=== PATIENT | male | born 1950 | race Caucasian/White ===

== ENCOUNTER 2023-05-08 10:15 | Inpatient (IN) | payer MEDICARE ==
[2023-05-08] MEDS ORDERED: ASPIRIN 81 MG PO STA (10:57)
[2023-05-08] MEDS: METOPROLOL TARTRATE 5 MG/5 ML VIAL IVP SCH ×2 (11:54→12:12)
[2023-05-08 11:59] LABS: Basophils % (A) 1 %; Eosinophils # (A) 0.1 k/uL (0-0.7); Eosinophils % (A) 1 %; HCT 40.7 % (39.0-53.0); HGB 13.7 gm/dL (13.0-17.5); Lymphocytes % (A) 14 %; MCH 29.2 pg (25.0-35.0); MCHC 33.5 g/dL (31.0-37.0); MCV 87.2 fL (80.0-100.0); Mean Platelet Volume 7.8; Monocytes # (A) 0.4 k/uL (0-1.0); Monocytes % (A) 6 %; Neutrophils # (A) 5.4 k/uL (1.3-7.7); Neutrophils % (A) 77 %; Platelet Count 164 k/uL (150-450); RBC 4.67 m/uL (4.30-5.90); RDW 14.4 % (11.5-15.5)
[2023-05-08 12:19] LABS: INR 1.1 (<1.2); Partial Thromboplastin Time 23.9 sec (22.0-30.0); Prothrombin Time 11.7 sec (10.0-12.5)
[2023-05-08 12:26] LABS: ALT 31 U/L (4-49); AST 24 U/L (17-59); African American GFR (CKD) >90 (>60 ml/min/1.73 sqM); Albumin 3.6 g/dL (3.5-5.0); Alkaline Phosphatase 54 U/L (38-126); Anion Gap 10 mmol/L; Blood Urea Nitrogen 15 mg/dL (9-20); Calcium 8.5 mg/dL (8.4-10.2); Carbon Dioxide 27 mmol/L (22-30); Chloride 105 mmol/L (98-107); Glucose 104 mg/dL (74-99); Magnesium 2.1 mg/dL (1.6-2.3); Non-African American GFR(CKD) 83 (>60 ml/min/1.73 sqM); Potassium 3.9 mmol/L (3.5-5.1); Sodium 142 mmol/L (137-145); Total Bilirubin 1.4 mg/dL (0.2-1.3); Total Protein 6.4 g/dL (6.3-8.2)
[2023-05-08 12:32] LABS: NT-Pro-B-Type Natriuretic Pept 7410 pg/mL
[2023-05-08] MEDS ORDERED: METOPROLOL TARTRATE 25 MG TAB PO STA ×2 (12:32→14:20)
--- NOTE | 2023-05-08 12:36 | XR ---
EXAMINATION TYPE: XR chest 2V DATE OF EXAM: 05/08/2023 12:27 PM CLINICAL INDICATION:Male, 72 years old with history of difficulty breathing; [facility] COMPARISON: None TECHNIQUE: XR chest 2V. Frontal PA and lateral views of the chest. FINDINGS: EKG leads overlie the chest. No indwelling lines are seen. The heart is enlarged with central vascular congestion, ill-defined perihilar vascular markings and d iffusely increased interstitial opacities. Some alveolar opacities are suggested in the mid to lower lung zones. There are small to moderate pleural effusions. No evidence of pneumothorax. No clear evidence of an acute osseous abnormality. Mild degenerative changes of the shoulders and spi ne. IMPRESSION: Cardiomegaly with vascular congestion, edema, small to moderate pleural effusions. Findings likely re lated to moderate CHF.
[2023-05-08] MEDS ORDERED: FUROSEMIDE 10 MG/ML 4 ML VIAL IV STA (12:42)
--- NOTE | 2023-05-08 12:57 | ED ---
General Adult HPI - General Chief complaint: Shortness of Breath Stated complaint: CHF-SOB Time Seen by Provider: 05/08/23 10:37 Source: patient, RN notes reviewed, old records reviewed Mode of arrival: ambulatory Limitations: no limitations - History of Present Illness Initial comments: Patient is a 72-year-old male who presents with his Department complaining of dyspnea. Patient and has noticed worsening shortness breath over the last 3 days. States he does have a possible history of CHF as well as an irregular heart rate. Presents for further evaluation at this time. Does endorse mild lower extremity edema. Endorses worsening orthopnea and exertional dyspnea. Denies cough, fevers, congestion. Denies chest pain, abdominal pain, nausea, vomiting. Presents for further evaluation of this time. Is not on blood thinners. - Related Data Allergies Allergy/AdvReac Type Severity Reaction Status Date / Time No Known Allergies Allergy Verified 05/08/23 10:36 Review of Systems ROS Statement: Those systems with pertinent positive or pertinent negative responses have been documented in the HPI. Review of Systems: CONST: Denies fever EYES: Denies blurry vision ENT: Denies nasal congestion C/V: Denies Chest pain RESP: Endorses exertional dyspnea GI: Denies abdominal pain : Denies dysuria SKIN: Denies rash. MSK: Denies joint pain. NEURO: Denies headache ROS Other: All systems not noted in ROS Statement are negative. Past Medical History Past Medical History: Heart Failure, Hyperlipidemia, Hypertension, Prostate Disorder History of Any Multi-Drug Resistant Organisms: None Reported Past Surgical History: Ear Surgery Additional Past Surgical History / Comment(s): hearing aids Past Psychological History: No Psychological Hx Reported Smoking Status: Former smoker Past Alcohol Use History: Rare Past Drug Use History: None Reported General Exam - General Exam Comments Initial Comments: General: Appears in no acute distress. HEAD: Normal with no signs of head trauma. EYES: PERRLA, EOMI, conjunctiva normal, no discharge. ENT: Hearing grossly intact, normal oropharynx. RESPIRATORY: Clear breath sounds bilaterally. No wheezes, rales, or rhonchi. No hypoxia. Relatively clear breath sounds bilaterally. C/V: Irregular rate and rhythm. S1 and S2 auscultated, bilateral lower extremity edema, peripheral pulses 2+ and intact throughout ABD: Abd is soft, nontender, nondistended EXT: Normal range of motion, no obvious deformity SKIN: No rashes or lesions observed on exposed skin. NEURO: Alert and oriented x 4. Limitations: no limitations Course Vital Signs 05/08/23 05/08/23 05/08/23 10:31 11:37 12:14 Temperature 98.4 F Pulse Rate 113 H 121 H 117 H Respiratory 24 20 20 Rate Blood Pressure 143/79 153/95 147/103 O2 Sat by Pulse 94 L 94 L 95 Oximetry 05/08/23 05/08/23 05/08/23 12:53 14:15 15:35 Temperature Pulse Rate 108 H 108 H 118 H Respiratory 20 18 20 Rate Blood Pressure 148/108 146/94 149/97 O2 Sat by Pulse 95 93 L 93 L Oximetry Procedures - Vance Protocol (Time Out) Nurse: Selena Zavala Medical Decision Making - Medical Decision Making Was pt. sent in by a medical professional or institution ([facility], [employer], urgent care, hospital, or intermediate...) When possible be specific @ -No Did you speak to anyone other than the patient for history (EMS, parent, family, police, friend...)? What history was obtained from this source @ -No Did you review nursing and triage notes (agree or disagree)? Why? @ -I reviewed and agree with nursing and triage notes Were old charts reviewed (outside hosp., previous admission, EMS record, old EKG, old radiological studies, urgent care reports/EKG's, intermediate records)? Report findings @ -No old charts were reviewed Differential Diagnosis (chest pain, altered mental status, abdominal pain women, abdominal pain men, vaginal bleeding, weakness, fever, dyspnea, syncope, headache, dizziness, GI bleed, back pain, seizure, CVA, palpatations, mental health, musculoskeletal)? @ -Differential Dyspnea: Coronary syndrome, arrhythmia, tamponade, asthma, COPD, pulmonary embolism, pneumonia, pneumothorax, pulmonary effusion, anaphylaxis, diabetic ketoacidosis, flailed chest, pulmonary contusion, diaphragmatic rupture, anemia, neuromuscular, this is not meant to be an all-inclusive list. EKG interpreted by me (3pts min.). @ -As above X-rays interpreted by me (1pt min.). @ -Chest x-ray shows bilateral pulmonary vascular congestion. CT interpreted by me (1pt min.). @ -CT PE negative for any obvious pulmonary embolism. U/S interpreted by me (1pt. min.). @ -None done What testing was considered but not performed or refused? (CT, X-rays, U/S, labs)? Why? @ -None What meds were considered but not given or refused? Why? @ -None Did you discuss the management of the patient with other professionals (professionals i.e. Dr., PA, [employer], lab, RT, psych nurse, social work specialist, hebrew professor, teacher, ethics officer, case hardener)? Give summary @ -[facility]. Was smoking cessation discussed for >3mins.? @ -No Was critical care preformed (if so, how long)? @ -Yes, 36 minutes. Were there social determinants of health that impacted care today? How? (Homelessness, low income, unemployed, alcoholism, drug addiction, transportation, low edu. Level, literacy, decrease access to med. care, halfway, rehab)? @ -No Was there de-escalation of care discussed even if they declined (Discuss DNR or withdrawal of care, Hospice)? DNR status @ -No What co-morbidities impacted this encounter? (DM, HTN, Smoking, COPD, CAD, Cancer, CVA, ARF, Chemo, Hep., AIDS, mental health diagnosis, sleep apnea, morbid obesity)? @ -None Was patient admitted / discharged? Hospital course, mention meds given and route, prescriptions, significant lab abnormalities, going to OR and other pertinent info. @ -Based on the patient's presentation and physical exam, presents with exe rtional dyspnea and suspected CHF. Also appears to have new onset atrial fibrillation. Patient's heart rate is ranging anywhere from 115-140 on average at this time. Patient is on carvedilol at home. We will obtain prior pulmonary workup. We'll attempt to control his new-onset A. fib with metoprolol initially. Patient was in agreement this plan. Vital signs otherwise within acceptable limits. He was given 324 mg of aspirin. EKG shows A. fib with no signs of acute ischemia. Patient's laboratory studies remarkable for a d-dimer that is slightly elevated at 0.8. BNP is 7400. Troponin is undetectable. At this time, I did recommend we obtain a CT PE to rule out PE and the patient is the cause of his new-onset atrial fibrillation. He was in agreement this plan. Patient's heart rate did improve after IV metoprolol and he was loaded with oral [address] PE negative for any obvious pulmonary embolism. I discussed results of the patient. He will be admitted at this time. He was in agreement this plan. I spoke with the accepting physician, Dr. Marlow who admitted the patient. Cardiology also consulted. Patient started on Lasix twice a day, as well as a low intensity heparin drip, and BID metoprolol. Undiagnosed new problem with uncertain prognosis? @ -No Drug Therapy requiring intensive monitoring for toxicity (Heparin, Nitro, Insulin, Cardizem)? @ -Heparin Were any procedures done? @ -No Diagnosis/symptom? @ -New-onset atrial fibrillation with RVR, CHF Acute, or Chronic, or Acute on Chronic? @ -Acute Uncomplicated (without systemic symptoms) or Complicated (systemic symptoms)? @ -Complicated Side effects of treatment? @ -No Exacerbation, Progression, or Severe Exacerbation? @ -No Poses a threat to life or bodily function? How? (Chest pain, [place], [place], pneumonia, PE, COPD, DKA, ARF, appy, cholecystitis, CVA, Diverticulitis, Homicidal, Suicidal, threat to staff... and all critical care pts) @ -yes - Lab Data Result diagrams: 05/08/23 11:31 05/08/23 11:31 Lab Results 05/08/23 05/08/23 05/08/23 Range/Units 11:31 11:31 11:31 WBC 7.0 (3.8-10.6) k/uL RBC 4.67 (4.30-5.90) m/uL Hgb 13.7 (13.0-17.5) gm/dL Hct 40.7 (39.0-53.0) % MCV 87.2 (80.0-100.0) fL MCH 29.2 (25.0-35.0) pg MCHC 33.5 (31.0-37.0) g/dL RDW 14.4 (11.5-15.5) % Plt Count 164 (150-450) k/uL MPV 7.8 Neutrophils % 77 % Lymphocytes % 14 % Monocytes % 6 % Eosinophils % 1 % Basophils % 1 % Neutrophils # 5.4 (1.3-7.7) k/uL Lymphocytes # 1.0 (1.0-4.8) k/uL Monocytes # 0.4 (0-1.0) k/uL Eosinophils # 0.1 (0-0.7) k/uL Basophils # 0.0 (0-0.2) k/uL PT 11.7 (10.0-12.5) sec INR 1.1 (<1.2) APTT 23.9 (22.0-30.0) sec D-Dimer 0.80 H (<0.60) mg/L FEU Sodium 142 (137-145) mmol/L Potassium 3.9 (3.5-5.1) mmol/L Chloride 105 (98-107) mmol/L Carbon Dioxide 27 (22-30) mmol/L Anion Gap 10 mmol/L BUN 15 (9-20) mg/dL Creatinine 0.91 (0.66-1.25) mg/dL Est GFR (CKD-EPI)AfAm >90 (>60 ml/min/1.73 sqM) Est GFR (CKD-EPI)NonAf 83 (>60 ml/min/1.73 sqM) Glucose 104 H (74-99) mg/dL Calcium 8.5 (8.4-10.2) mg/dL Magnesium 2.1 (1.6-2.3) mg/dL Total Bilirubin 1.4 H (0.2-1.3) mg/dL AST 24 (17-59) U/L ALT 31 (4-49) U/L Alkaline Phosphatase 54 (38-126) U/L Troponin I (0.000-0.034) ng/mL NT-Pro-B Natriuret Pep 7410 pg/mL Total Protein 6.4 (6.3-8.2) g/dL Albumin 3.6 (3.5-5.0) g/dL Influenza Type A (PCR) (Not Detectd) Influenza Type B (PCR) (Not Detectd) RSV (PCR) (Not Detectd) SARS-CoV-2 (PCR) (Not Detectd) 05/08/23 05/08/23 Range/Units 11:31 12:51 WBC (3.8-10.6) k/uL RBC (4.30-5.90) m/uL Hgb (13.0-17.5) gm/dL Hct (39.0-53.0) % MCV (80.0-100.0) fL MCH (25.0-35.0) pg MCHC (31.0-37.0) g/dL RDW (11.5-15.5) % Plt Count (150-450) k/uL MPV Neutrophils % % Lymphocytes % % Monocytes % % Eosinophils % % Basophils % % Neutrophils # (1.3-7.7) k/uL Lymphocytes # (1.0-4.8) k/uL Monocytes # (0-1.0) k/uL Eosinophils # (0-0.7) k/uL Basophils # (0-0.2) k/uL PT (10.0-12.5) sec INR (<1.2) APTT (22.0-30.0) sec D-Dimer (<0.60) mg/L FEU Sodium (137-145) mmol/L Potassium (3.5-5.1) mmol/L Chloride (98-107) mmol/L Carbon Dioxide (22-30) mmol/L Anion Gap mmol/L BUN (9-20) mg/dL Creatinine (0.66-1.25) mg/dL Est GFR (CKD-EPI)AfAm (>60 ml/min/1.73 sqM) Est GFR (CKD-EPI)NonAf (>60 ml/min/1.73 sqM) Glucose (74-99) mg/dL Calcium (8.4-10.2) mg/dL Magnesium (1.6-2.3) mg/dL Total Bilirubin (0.2-1.3) mg/dL AST (17-59) U/L ALT (4-49) U/L Alkaline Phosphatase (38-126) U/L Troponin I <0.012 (0.000-0.034) ng/mL NT-Pro-B Natriuret Pep pg/mL Total Protein (6.3-8.2) g/dL Albumin (3.5-5.0) g/dL Influenza Type A (PCR) Not Detected (Not Detectd) Influenza Type B (PCR) Not Detected (Not Detectd) RSV (PCR) Not Detected (Not Detectd) SARS-CoV-2 (PCR) Not Detected (Not Detectd) - EKG Data -: EKG Interpreted by Me EKG Comments: 12-lead Electrocardiogram Interpretation Note EKG was reviewed and interpreted by myself. 12-lead ECG performed at 1055 is interpreted by me as revealing A. fib with RVR at a rate of 120 beats per minute. [place] is normal. QRS durations 110 ms, QTc is 404 ms.. There were no ST or T wave abnormalities to suggest myocardial ischemia or injury. R wave progression across the precordium was satisfactory. By my interpretation this EKG is non-diagnostic for acute ischemia. Critical Care Time Critical Care Time: Yes Total Critical Care Time: 36 Disposition Clinical Impression: Atrial fibrillation with RVR, CHF (congestive heart failure) Disposition: ADMITTED IP TO THIS HOSP Condition: Stable Referrals: Fernando Bagley MD [Primary Care Provider] - 1-2 days Time of Disposition: 15:35
--- NOTE | 2023-05-08 13:41 | HP ---
HISTORY AND PHYSICAL CHIEF COMPLAINTS: Shortness of breath and palpitations. HISTORY OF PRESENT ILLNESS: This is a 72-year-old gentleman with a past medical history of hypertension, hyperlipidemia, CHF, being followed by Cardiology in Hospital, is complaining of increasing shortness of breath even walking a short distance. The patient came to [facility], found to have atrial fibrillation with fast ventricular rate, D- dimer was elevated. The patient also had features of CHF also, BNP is elevated. Chest x-ray showed bilateral shadows. The patient is being just admitted in the ER and being worked up at this time. There is no history of any fever, rigors, or chills at this time. PAST MEDICAL HISTORY: Reviewed include hypertension, hyperlipidemia, CHF, rest of the history is noted. HOME MEDICATIONS: List is not available. ALLERGIES: None. FAMILY HISTORY: No history of heart disease or strokes in the family. SOCIAL HISTORY: Remote history of smoking. REVIEW OF SYSTEMS: A 14-point review is negative except as mentioned earlier. PHYSICAL EXAMINATION: VITAL SIGNS: Pulse is 121 and irregular, blood pressure 153/94, and respirations 20. HEENT: Conjunctivae normal. NECK: No jugular venous distention. CARDIOVASCULAR: S1, S2, tachycardic and feeble. RESPIRATIONS: Few scattered rhonchi and crackles in the bases. ABDOMEN: Soft and nontender. LEGS: No edema, no swelling. NERVOUS SYSTEM: n LYMPHATICS: No lymph nodes. SKIN: No ulcer, rash, or bleeding. JOINTS: No active deforming arthropathy. LABS: D-dimer is 0.8, glucose 104, and bilirubin is 1.4. ASSESSMENT: 1. Atrial ablation with fast ventricular rate. 2. CHF with acute exacerbation. 3. History of CHF. 4. Hypertension. 5. Hyperlipidemia. 6. History of prostate disorder. 7. Remote history of nicotine dependence. RECOMMENDATIONS: This 72-year-old gentleman presented with multiple complex medical issues at this time. The patient has received Lopressor 2.5 and 2.5. I would recommend to continue with the beta jonathan. If the heart rate is not coming down, I would definitely recommend Cardizem drip and 2D echo with Doppler, cardiology consultation, full cardiovascular workup, and D-dimer is slightly elevated. CT scan of the chest has been ordered to rule out the possibility of pulmonary embolism. I would also recommend 2D echo. We will continue to monitor. COVID testing is also being ordered even though given the patient does not have any significant fever at this time. The patient had definite chest x-ray abnormalities. We will continue to monitor. Further recommendations to follow. MMODL / IJN: [id number] / MTDD
[2023-05-08] MEDS ORDERED: ONDANSETRON 4 MG/2 ML VIAL IVP PRN ×2 (13:53→15:42)
[2023-05-08] MEDS ORDERED: METOPROLOL TARTRATE 5 MG/5 ML VIAL IVP STA (14:20)
--- NOTE | 2023-05-08 15:29 | CT ---
EXAMINATION TYPE: CT chest angio for PE CT DLP: 448.8 mGycm, Automated exposure control for dose reduction was used. DATE OF EXAM: 05/08/2023 1:43 PM COMPARISON: None. CLINICAL INDICATION:Male, 72 years old with history of eval for PE; Eval for PE TECHNIQUE/CONTRAST: CTA scan of the thorax is performed with IV Contrast, patient injected with 100 ml mL of Isovue 300, multi planar reformats as well as MIP images are created and reviewed these are created on a separate workstation.. FINDINGS: There is adequate contrast bolus and timing. PULMONARY ARTERIES: The main pulmonary artery is quite enlarged measuring 5.4 cm (normal less than 3 cm). The pulmonary arteries enhance normally without evidence of filling defect to suggest acute PE. There is however some limitation on the segmental and subsegmental level due to the lung opacities. LOWER NECK: No significant findings. MEDIASTINUM: There are multiple nonenlarged and borderline prominent mediastinal nodes, favored to be reactive. Prominent bilateral hilar soft soft tissues, up to 2.3 cm bilaterally. HEART: Heart is moderately enlarged.Mild coronary artery calcification. No appreciable pericardial e ffusion. AORTA: Aorta is not opacified, limiting assessment. There is mild atherosclerotic calcification larisa g the arch. The proximal aorta is 4.2 cm, descending is 3.5 cm. Aorta is considered ectatic. SOFT TISSUES/LYMPH NODES: Unremarkable soft tissues. No axillary adenopathy. Mild bilateral gynecoma stia. LUNGS/ PLEURA: Intralobular septal thickening with mosaic attenuation throughout the lungs, likely re sult of vascular congestion and edema. Moderate right and [id number] left pleural effusions, w ith adjacent lung opacities likely compressive atelectasis. No pneumothorax. AIRWAY: Central airways are patent. MUSCULOSKELETAL: No acute osseous abnormality. Generalized osteopenia and mild/moderate degenerative changes. UPPER ABDOMEN: Reflux of contrast to the IVC below the liver and into the hepatic veins suggesting ri ght heart failure. Vague hypodense 2.2 cm lesion in the anterior liver of uncertain etiology. Small h iatal hernia. IMPRESSION: 1. No evidence of central pulmonary embolism. Limited evaluation of the segmental and subsegmental b ranches. 2. Significantly enlarged pulmonary arteries, consistent with pulmonary hypertension. 3. Moderate cardiomegaly with findings of vascular congestion, edema, and bilateral pleural effusion s; findings suggest moderate to severe CHF. 4. A 2.2 cm hypodensity in the anterior liver, of uncertain cause. Further evaluation could begin outpatient ultrasound.
[2023-05-08] MEDS: PANTOPRAZOLE 40 MG/10 ML VIAL IVP SCH ×2 (15:41→20:53)
[2023-05-08] MEDS ORDERED: HEPARIN SODIUM 1,000 UN/ML (10ML VL) IV PRN (15:41)
[2023-05-08] MEDS ORDERED: HEPARIN SODIUM 1,000 UN/ML (10ML VL) IV ONE (15:41)
[2023-05-08] MEDS ORDERED: NALOXONE 0.4 MG/ML 1 ML VIAL IV PRN (15:42)
[2023-05-08] MEDS: HEPARIN SOD,PORK IN 0.45% NACL 25,000 UNIT in 0.45% NACL 1 250ML.BAG IV SCH (16:19)
[2023-05-08] MEDS: FUROSEMIDE 10 MG/ML 4 ML VIAL IV SCH (20:42)
[2023-05-08] MEDS ORDERED: METOPROLOL TARTRATE 25 MG TAB PO SCH (21:00)
[2023-05-08] MEDS: ACETAMINOPHEN TAB 325 MG TAB PO PRN (23:23)
[2023-05-09] MEDS: HEPARIN SOD,PORK IN 0.45% NACL 25,000 UNIT in 0.45% NACL 1 250ML.BAG IV SCH ×2 (01:29→14:43)
[2023-05-09 08:43] LABS: Basophils % (A) 1 %; Eosinophils # (A) 0.2 k/uL (0-0.7); Eosinophils % (A) 2 %; HCT 41.9 % (39.0-53.0); HGB 13.8 gm/dL (13.0-17.5); Lymphocytes # (A) 1.5 k/uL (1.0-4.8); Lymphocytes % (A) 23 %; MCH 28.5 pg (25.0-35.0); MCHC 32.9 g/dL (31.0-37.0); MCV 86.8 fL (80.0-100.0); Mean Platelet Volume 8.5; Monocytes # (A) 0.5 k/uL (0-1.0); Monocytes % (A) 7 %; Neutrophils # (A) 4.1 k/uL (1.3-7.7); Neutrophils % (A) 65 %; Platelet Count 161 k/uL (150-450); RBC 4.82 m/uL (4.30-5.90); RDW 14.5 % (11.5-15.5); WBC 6.4 k/uL (3.8-10.6)
[2023-05-09] MEDS ORDERED: DILTIAZEM DRIP BOLUS FROM BAG 1 MG SOLN IV ONE (08:47)
[2023-05-09] MEDS ORDERED: METOPROLOL TARTRATE 25 MG TAB PO SCH (09:00)
[2023-05-09] MEDS ORDERED: DILTIAZEM 125 MG in SODIUM CHLORIDE 0.9% 100 ML IV SCH (09:00)
[2023-05-09 09:03] LABS: ALT 28 U/L (4-49); AST 23 U/L (17-59); African American GFR (CKD) >90 (>60 ml/min/1.73 sqM); Albumin 3.7 g/dL (3.5-5.0); Alkaline Phosphatase 57 U/L (38-126); Anion Gap 13 mmol/L; Blood Urea Nitrogen 15 mg/dL (9-20); Calcium 8.5 mg/dL (8.4-10.2); Carbon Dioxide 30 mmol/L (22-30); Chloride 100 mmol/L (98-107); Glucose 100 mg/dL (74-99); Non-African American GFR(CKD) 85 (>60 ml/min/1.73 sqM); Potassium 3.2 mmol/L (3.5-5.1); Sodium 143 mmol/L (137-145); Total Bilirubin 1.6 mg/dL (0.2-1.3); Total Protein 6.7 g/dL (6.3-8.2)
[2023-05-09] MEDS: PANTOPRAZOLE 40 MG/10 ML VIAL IVP SCH ×2 (10:00→20:36)
[2023-05-09] MEDS: carvediloL 12.5 MG TAB PO SCH ×2 (10:02→17:25)
[2023-05-09] MEDS: FUROSEMIDE 10 MG/ML 4 ML VIAL IV SCH ×2 (10:02→20:35)
[2023-05-09] MEDS: lisinopriL 20 MG TAB PO SCH (10:03)
[2023-05-09 10:38] LABS: INR 1.2 (<1.2)
[2023-05-09 10:39] LABS: Prothrombin Time 12.6 sec (10.0-12.5)
--- NOTE | 2023-05-09 11:18 | CA ---
Transthoracic Echo Report Name: Angel Hatch Age: 72 Gender: M : 1950 Exam Date: 05/09/2023 09:59 Exam Location: [facility] Ht (in): 70 Wt (lb): 215 Ordering Physician: Adela Marlow MD Attending/Referring Phys: Personal Counselor Zachariah Francis Procedure CPT: Indications: chf Cardiac Hx: Technical Quality: Fair Contrast 1: Total Dose (mL): Contrast 2: Total Dose (mL): MEASUREMENTS (Male / Female) Normal Values 2D ECHO LV Diastolic Diameter PLAX 5.6 cm 4.2 - 5.9 / 3.9 - 5.3 cm LV Systolic Diameter PLAX 3.9 cm IVS Diastolic Thickness 1.3 cm 0.6 - 1.0 / 0.6 - 0.9 cm LVPW Diastolic Thickness 1.0 cm 0.6 - 1.0 / 0.6 - 0.9 cm LV Relative Wall Thickness 0.4 RV Internal Dim ED PLAX 3.2 cm LVOT Diameter 2.5 cm Aortic Root Diameter 4.8 cm LA Systolic Diameter LX 3.9 cm 3.0 - 4.0 / 2.7 - 3.8 cm LV Diastolic Volume MOD BP 75.5 cm??? 67 - 155 / 56 - 104 cm??? LV Systolic Volume MOD BP 39.4 cm??? 22 - 58 / 19 - 49 cm??? LV Ejection Fraction MOD BP 47.8 % >= 55 % LV Cardiac Index MOD BP 1935.0 cm???/min???m??? LV Diastolic Volume MOD 4C 83.8 cm??? LV Systolic Volume MOD 4C 36.0 cm??? LV Ejection Fraction MOD 4C 57.0 % LV Cardiac Index MOD 4C 2561.5 cm???/min???m??? LV Diastolic Length 4C 7.4 cm LV Systolic Length 4C 6.8 cm LV Diastolic Volume MOD 2C 68.2 cm??? LV Systolic Volume MOD 2C 42.9 cm??? LV Ejection Fraction MOD 2C 37.1 % LV Cardiac Index MOD 2C 1357.2 cm???/min???m??? LV Diastolic Length 2C 7.4 cm LV Systolic Length 2C 7.0 cm LA Volume 93.7 cm??? 18 - 58 / 22 - 52 cm??? LA Volume Index 42.2 cm???/m??? 16 - 28 cm???/m??? DOPPLER AV Peak Velocity 117.1 cm/s AV Peak Gradient 5.5 mmHg AV Mean Velocity 81.7 cm/s AV Mean Gradient 3.1 mmHg AV Velocity Time Integral 19.8 cm AI Peak Velocity 371.8 cm/s AI Peak Gradient 55.3 mmHg AI Pressure Half Time 1186.6 ms LVOT Peak Velocity 75.5 cm/s LVOT Peak Gradient 2.3 mmHg LVOT Velocity Time Integral 13.0 cm LVOT Stroke Volume 65.9 cm??? LVOT Stroke Volume Index 30.6 ml/m??? LVOT Cardiac Index 3532.3 cm???/min???m??? AV Area Cont Eq vti 3.3 cm??? AV Area Cont Eq pk 3.3 cm??? MV Peak Velocity 125.6 cm/s MV Peak Gradient 6.3 mmHg MV Mean Velocity 56.1 cm/s MV Mean Gradient 1.7 mmHg MV Velocity Time Integral 27.0 cm MR Peak Velocity 395.2 cm/s MR Peak Gradient 62.5 mmHg TR Peak Velocity 284.3 cm/s TR Peak Gradient 32.3 mmHg Right Ventricular Systolic Press 37.6 mmHg PV Peak Velocity 219.5 cm/s PV Peak Gradient 19.3 mmHg FINDINGS Left Ventricle Carmelina LV size and wal thickness. Left ventricular ejection fraction is estimated at 35-40 %. Right Ventricle Normal right ventricular size. RVSP= 38mmHg. Right Atrium Mild right atrial dilatation. Left Atrium Severely increased left atrial volume. Moderately increased left atrial area. LA volume index= 44ml/m2 Mitral Valve Structurally normal mitral valve. Mild MR. Aortic Valve Trileaflet aortic valve. Mild to AI. Tricuspid Valve Structurally normal tricuspid valve. Mild to moderate TR. Pulmonic Valve Structurally normal pulmonic valve. Pericardium Not well visualized however, grossly normal pericardium. Aorta Normal size aortic. CONCLUSIONS Moderate to severe LV systolic dysfunction with an ejection fraction of 35-40% Mild aortic regurgitation mild to moderate tricuspid regurgitation dilated left atrium Mild pulmonary hypertension Previewed by: Dr. John Hogan MD (Electronically Signed) Final Date: 09 May 2023 11:17
--- NOTE | 2023-05-09 11:31 | P.CRDCN ---
History of Present Illness History of present illness: HISTORY OF PRESENT ILLNESS: This is a 72-year-old male with a past medical history significant for hypertension, hyperlipidemia, and congestive heart failure. Patient follows with a crab backer out of [facility]. We have been asked to see the patient in consultation for new-onset atrial fibrillation. Patient examined at the bedside in the emergency room. Patient presented to the hospital for chief complaint of shortness of breath. He states over the weekend he became extremely short of breath with minimal exertion such as walking around his house. He denied having any chest pain or pressure. He presented to the hospital for further evaluation. The patient was found to be in atrial fibrillation with RVR. The patient denies a history of atrial fibrillation. He was started on IV heparin. At the time of examination, he remains in atrial fibrillation with a heart rate around 140. Blood pressure stable. * EKG reveals A. fib with RVR * Chest xray cardiomegaly with pulmonary congestion, edema, small to moderate pleural effusions. * Chest CTA: Negative for pulmonary embolism, moderate cardiomegaly with findings of vascular congestion, edema, and bilateral pleural effusions suggesting moderate to severe CHF * Laboratory data: Troponin negative 3. ProBNP 7410. * Current home cardiac medications include rosuvastatin 40 mg at night, carvedilol 25 mg twice a day, lisinopril 20 mg daily. * Echocardiogram obtained this admission reveals ejection fraction 35-40%, mild MR, mild AI, [id number] TR * Cardiac catheterization history: Patient denies REVIEW OF SYSTEMS: At the time of my exam: CONSTITUTIONAL: Denies fever or chills. HEENT: Denies blurred vision, vision changes, or eye pain. Denies hemoptysis CARDIOVASCULAR: Denies chest pain. Denies orthopnea. Denies PND. Denies palpitations RESPIRATORY: Denies shortness of breath. GASTROINTESTINAL: Denies abdominal pain. Denies nausea or vomiting. HEMATOLOGIC: Denies bleeding disorders. GENITOURINARY: Denies any blood in urine. SKIN: Denies pruitis. Denies rash. PHYSICAL EXAM: VITAL SIGNS: Reviewed. GENERAL: Well-developed in no acute distress. HEENT: Head is normocephalic. Pupils are equal, round. Sclerae anicteric. Mucous membranes of the mouth are moist. Neck supple. No JVD or thyromegaly LUNGS: Respirations even and unlabored. Lungs essentially clear to auscultation bilaterally. HEART: Regular rate and rhythm. S1 and S2 heard. ABDOMEN: Soft. Nondistended. Nontender. EXTREMITIES: Normal range of motion. No clubbing or cyanosis. Peripheral pulses intact. No lower extremity edema NEUROLOGIC: Awake and alert. Oriented x 3. ASSESSMENT: Shortness of breath Acute on chronic heart failure with reduced ejection fraction, 35-40% New-onset atrial fibrillation with RVR New-onset cardiomyopathy, ischemic versus nonischemic Hypertension Hyperlipidemia PLAN: 2-D echo obtained and reviewed Check TSH Resume home cardiac medications Continue carvedilol 25 mg twice a day Continue IV Lasix 40 mg every 12 hours Daily weights, accurate I&O, and monitoring of kidney function Patient was started on IV Cardizem this morning for rate control. We will discontinue secondary to cardiomyopathy Continue telemetry monitoring Continue IV heparin at this time. Do not transition to oral anticoagulation due to need for cardiac catheterization in the future Patient will require cardiac catheterization when he is medically stable secondary to cardiomyopathy Further recommendations pending patient's course Nurse practitioner note has been reviewed by physician. Signing provider agrees with the documented findings, assessment, and plan of care. Past Medical History Past Medical History: Heart Failure, Hyperlipidemia, Hypertension, Prostate Disorder History of Any Multi-Drug Resistant Organisms: None Reported Past Surgical History: Ear Surgery Additional Past Surgical History / Comment(s): hearing aids Past Psychological History: No Psychological Hx Reported Smoking Status: Former smoker Past Alcohol Use History: Rare Past Drug Use History: None Reported Medications and Allergies Home Medications Medication Instructions Recorded Confirmed Type Doxazosin [Cardura] 2 mg PO HS 05/08/23 05/08/23 History Finasteride [Proscar] 5 mg PO DAILY@1500 05/08/23 05/08/23 History Rosuvastatin Calcium [Crestor] 40 mg PO HS 05/08/23 05/08/23 History Sildenafil [Revatio] 20 mg PO DAILY@1500 05/08/23 05/08/23 History carvediloL [Coreg] 25 mg PO BID 05/08/23 05/08/23 History lisinopriL [Prinivil] 20 mg PO DAILY 05/08/23 05/08/23 History Allergies Allergy/AdvReac Type Severity Reaction Status Date / Time No Known Allergies Allergy Verified 05/08/23 16:32 Physical Exam Vitals: Vital Signs Temp Pulse Resp BP Pulse Ox 05/09/23 06:48 97.7 F 116 H 19 136/99 96 05/09/23 05:02 101 H 17 132/99 92 L 05/09/23 03:00 80 130/94 95 05/09/23 02:00 100 124/90 95 05/09/23 01:00 129 H 120/85 96 05/09/23 00:39 89 19 120/85 92 L 05/08/23 23:21 116 H 17 124/90 05/08/23 18:46 108 H 18 125/89 93 L 05/08/23 15:35 118 H 20 149/97 93 L 05/08/23 14:15 108 H 18 146/94 93 L 05/08/23 12:53 108 H 20 148/108 95 05/08/23 12:14 117 H 20 147/103 95 05/08/23 11:37 121 H 20 153/95 94 L 05/08/23 10:31 98.4 F 113 H 24 143/79 94 L Intake and Output 05/08/23 05/09/23 05/09/23 22:59 06:59 14:59 Intake Total 91.667 Balance 91.667 Intake: Intake, IV Titration 91.667 Amount Heparin Sod,Pork in 0.45% 91.667 NaCl 25,000 unit In 0.45 % NaCl 1 250ml.bag @ 10. 254 UNITS/KG/HR 10 mls/hr IV .Q24H [facility] Rx#: [id number] Results 05/09/23 07:54 05/09/23 07:54 Cardiac Enzymes 05/08/23 05/08/23 05/08/23 Range/Units 11:31 11:31 18:25 AST 24 (17-59) U/L Troponin I <0.012 <0.012 (0.000-0.034) ng/mL 05/08/23 Range/Units 21:24 AST (17-59) U/L Troponin I <0.012 (0.000-0.034) ng/mL Coagulation 05/08/23 05/08/23 Range/Units 11:31 21:24 PT 11.7 (10.0-12.5) sec APTT 23.9 36.7 H (22.0-30.0) sec CBC 05/08/23 Range/Units 11:31 WBC 7.0 (3.8-10.6) k/uL RBC 4.67 (4.30-5.90) m/uL Hgb 13.7 (13.0-17.5) gm/dL Hct 40.7 (39.0-53.0) % Plt Count 164 (150-450) k/uL Comprehensive Metabolic Panel 05/08/23 Range/Units 11:31 Sodium 142 (137-145) mmol/L Potassium 3.9 (3.5-5.1) mmol/L Chloride 105 (98-107) mmol/L Carbon Dioxide 27 (22-30) mmol/L BUN 15 (9-20) mg/dL Creatinine 0.91 (0.66-1.25) mg/dL Glucose 104 H (74-99) mg/dL Calcium 8.5 (8.4-10.2) mg/dL AST 24 (17-59) U/L ALT 31 (4-49) U/L Alkaline Phosphatase 54 (38-126) U/L Total Protein 6.4 (6.3-8.2) g/dL Albumin 3.6 (3.5-5.0) g/dL Current Medications Generic Name Dose Route Start Last Admin Trade Name Freq PRN Reason Stop Dose Admin Acetaminophen 650 mg 05/08/23 13:53 05/08/23 23:23 Acetaminophen Tab 325 Mg Tab PO 650 mg Q6H PRN Administration Fever Furosemide 40 mg 05/08/23 21:00 05/08/23 20:42 Furosemide 10 Mg/Ml 4 Ml Vial IV 40 mg Q12HR [facility] Administration Heparin Sodium (Porcine) 0 unit 05/08/23 15:41 05/09/23 01:29 Heparin Sodium 1,000 Un/Ml (10ml Vl) IV 2,400 unit PER PROTOCOL PRN Administration Low PTT Protocol Heparin Sodium/Sodium Chloride 250 mls @ 10 mls/hr 05/08/23 15:45 05/09/23 01:29 25,000 unit/ Sodium Chloride IV 12.254 units/kg/hr .Q24H [facility] 11.95 mls/hr Administration Protocol 10.254 UNITS/KG/HR Metoprolol Tartrate 25 mg 05/08/23 21:00 05/08/23 20:41 Metoprolol Tartrate 25 Mg Tab PO 25 mg BID [facility] Administration Naloxone HCl 0.2 mg 05/08/23 15:42 Naloxone 0.4 Mg/Ml 1 Ml Vial IV Q2M PRN Opioid Reversal Ondansetron HCl 4 mg 05/08/23 15:42 Ondansetron 4 Mg/2 Ml Vial IVP Q8HR PRN Nausea And Vomiting Pantoprazole Sodium 40 mg 05/08/23 14:00 05/08/23 20:53 Pantoprazole 40 Mg/10 Ml Vial IVP 40 mg BID YONI Administration Intake and Output 05/08/23 05/09/23 05/09/23 22:59 06:59 14:59 Intake Total 91.667 Balance 91.667 Intake: Intake, IV Titration 91.667 Amount Heparin Sod,Pork in 0.45% 91.667 NaCl 25,000 unit In 0.45 % NaCl 1 250ml.bag @ 10. 254 UNITS/KG/HR 10 mls/hr IV .Q24H [facility] Rx#: [id number] 05/08/23 11:31 05/08/23 11:31
[2023-05-09] MEDS: FINASTERIDE 5 MG TAB PO SCH (14:41)
[2023-05-09] MEDS: ACETAMINOPHEN TAB 325 MG TAB PO PRN (14:42)
[2023-05-09 17:17] LABS: Appearance,Urine Clear (Clear); Bilirubin,Urine Negative (Negative); Blood,Urine Trace (Negative); Color,Urine Colorless; Glucose,Urine (UA) Negative (Negative); Ketones,Urine Negative (Negative); Leukocyte Esterase,Urine Negative (Negative); Mucus,Urine Rare /hpf; Nitrite,Urine Negative (Negative); PH, Urine 6.5 (5.0-8.0); Protein,Urine Trace (Negative); RBC,Urine 1 /hpf (0-5); Specific Gravity,Urine 1.013 (1.001-1.035); Squamous Epithelial Cell,Urine <1 /hpf (0-4); Urobilinogen,Urine <2.0 mg/dL (<2.0); WBC,Urine <1 /hpf (0-5)
[2023-05-09] MEDS: DOXAZOSIN 2 MG TAB PO SCH (20:35)
[2023-05-09] MEDS: ATORVASTATIN 80 MG TAB PO SCH (20:36)
[2023-05-10] MEDS: carvediloL 12.5 MG TAB PO SCH ×2 (06:50→17:15)
[2023-05-10] MEDS: FUROSEMIDE 10 MG/ML 4 ML VIAL IV SCH ×2 (06:51→17:16)
[2023-05-10] MEDS: PANTOPRAZOLE 40 MG/10 ML VIAL IVP SCH ×2 (07:42→20:23)
[2023-05-10] MEDS: lisinopriL 20 MG TAB PO SCH (07:42)
--- NOTE | 2023-05-10 07:45 | PN ---
PROGRESS NOTE DATE OF SERVICE: 05/09/2023 SUBJECTIVE: This is a 72-year-old gentleman who was admitted with atrial ablation, fast ventricular rate also, had features of CHF also. The patient is still on Cardizem drip at this time. Heart rate is still elevated. The chest CTA which I reviewed personally showed no evidence of pulmonary embolism, possibly vascular congestion and some pleural effusions also. A 2D echo showed [id number] LV dysfunction with ejection fraction 35% to 40% and mild aortic regurgitation, moderate tricuspid regurgitation also. The patient is being closely monitored at this time. Cardiology is also following the patient closely. PAST MEDICAL HISTORY: Reviewed. REVIEW OF SYSTEMS: A 14-point review is negative except as mentioned. CURRENT MEDICATIONS: Reviewed include IV Lasix. PHYSICAL EXAMINATION: VITAL SIGNS: Pulse is 101 and irregular, blood pressure 130/90, respirations 17. HEENT: Conjunctivae normal. NECK: No jugular venous distention. CARDIOVASCULAR: S1, S2 muffled. RESPIRATIONS: Few scattered rhonchi. ABDOMEN: Soft, nontender. LEGS: No edema, no swelling. NERVOUS SYSTEM: Nonfocal. LABORATORY DATA: INR 1.2, rest of the labs are noted. CTA reviewed personally. ASSESSMENT: 1. CHF acute exacerbation, acute on chronic systolic dysfunction, ejection fraction 35% to 40%. 2. New-onset atrial fibrillation with fast ventricular rate. 3. History of CHF. 4. Hypertension. 5. Hyperlipidemia. 6. History of prostate disorder. 7. Remote history of nicotine dependence. RECOMMENDATIONS AND DISCUSSION: This is a 72-year-old gentleman who presented with multiple complex medical issues, we will monitor the patient closely. Continue with gentle diuresis. Monitor creatinine closely. Closely follow with Cardiology. IV heparin drip. Continue the beta blockers. Continue rest of medications. Prognosis guarded. Discussed with the patient at length with the family and further recommendations to follow. Troponins are negative. COVID-19 is also negative. MMODL / IJN: [id number] /
[2023-05-10 08:50] LABS: Basophils % (A) 1 %; Eosinophils # (A) 0.2 k/uL (0-0.7); Eosinophils % (A) 3 %; HCT 43.3 % (39.0-53.0); HGB 14.2 gm/dL (13.0-17.5); Hypochromasia Slight; Lymphocytes # (A) 1.4 k/uL (1.0-4.8); Lymphocytes % (A) 23 %; MCH 28.5 pg (25.0-35.0); MCHC 32.7 g/dL (31.0-37.0); MCV 87.3 fL (80.0-100.0); Mean Platelet Volume 8.1; Monocytes # (A) 0.4 k/uL (0-1.0); Monocytes % (A) 6 %; Neutrophils % (A) 66 %; Platelet Count 169 k/uL (150-450); RBC 4.96 m/uL (4.30-5.90); RDW 14.2 % (11.5-15.5); WBC 6.1 k/uL (3.8-10.6)
[2023-05-10 09:27] LABS: African American GFR (CKD) 85 (>60 ml/min/1.73 sqM); Anion Gap 12 mmol/L; Blood Urea Nitrogen 16 mg/dL (9-20); Calcium 8.7 mg/dL (8.4-10.2); Carbon Dioxide 30 mmol/L (22-30); Chloride 99 mmol/L (98-107); Glucose 176 mg/dL (74-99); Non-African American GFR(CKD) 74 (>60 ml/min/1.73 sqM); Potassium 2.8 mmol/L (3.5-5.1); Sodium 141 mmol/L (137-145)
[2023-05-10] MEDS ORDERED: Potassium Replacement Protocol 1 EACH MISC MISCELLANE PRN ×3 (09:28→14:50)
[2023-05-10] MEDS: POTASSIUM CHLORIDE ER 20 MEQ TAB.ER PO SCH ×8 (09:36→20:22)
[2023-05-10] MEDS: HEPARIN SOD,PORK IN 0.45% NACL 25,000 UNIT in 0.45% NACL 1 250ML.BAG IV SCH (09:37)
--- NOTE | 2023-05-10 10:34 | XR ---
EXAM: XR chest 1V portable CLINICAL INDICATION:Male, 72 years old with history of short of breath; PH COMPARISON: 05/08/2023 chest x-ray and CT chest angio for PE TECHNIQUE: Chest single view. FINDINGS: EKG leads overlie the chest. No indwelling lines are seen. Tortuous aorta with partial calcification again noted. The heart is again moderately enlarged with ce ntral pulmonary vascular congestion, ill-defined perihilar vascular markings and diffusely increased interstitial opacities. Some alveolar opacities are suggested in the mid to lower lung zones, may be slightly improved. Small bilateral pleural effusions with possible minimal reduction in size. No evid ence of pneumothorax. No clear evidence of an acute osseous abnormality. Mild degenerative changes of the shoulders and spi ne. IMPRESSION: Cardiomegaly with findings suggesting CHF, with minimal interval improvement.
--- NOTE | 2023-05-10 12:12 | P.PN ---
Subjective HISTORY OF PRESENT ILLNESS: This is a 72-year-old male with a past medical history significant for hypertension, hyperlipidemia, and congestive heart failure. Patient follows with a high school vice principal out of [facility]. We have been asked to see the patient in consultation for new-onset atrial fibrillation. Patient examined at the bedside in the emergency room. Patient presented to the hospital for chief complaint of shortness of breath. He states over the weekend he became extremely short of breath with minimal exertion such as walking around his house. He denied having any chest pain or pressure. He presented to the hospital for further evaluation. The patient was found to be in atrial fibrillation with RVR. The patient denies a history of atrial fibrillation. He was started on IV heparin. At the time of examination, he remains in atrial fibrillation with a heart rate around 140. Blood pressure stable. * EKG reveals A. fib with RVR * Chest xray cardiomegaly with pulmonary congestion, edema, small to moderate pleural effusions. * Chest CTA: Negative for pulmonary embolism, moderate cardiomegaly with findings of vascular congestion, edema, and bilateral pleural effusions suggesting moderate to severe CHF * Laboratory data: Troponin negative 3. ProBNP 7410. * Current home cardiac medications include rosuvastatin 40 mg at night, carvedilol 25 mg twice a day, lisinopril 20 mg daily. * Echocardiogram obtained this admission reveals ejection fraction 35-40%, mild MR, mild AI, [id number] TR * Cardiac catheterization history: Patient denies 05/10/2023 Patient examined this morning at the bedside. Patients is present. Patient currently denies chest pain or pressure. He reports significant improvement in his breathing. He remains on IV Lasix 40 mg every 12 hours. Telemetry reveals atrial fibrillation with heart rate around 120. He remains on IV heparin. PHYSICAL EXAM: VITAL SIGNS: Reviewed. GENERAL: Well-developed in no acute distress. HEENT: Head is normocephalic. Pupils are equal, round. Sclerae anicteric. Mucous membranes of the mouth are moist. Neck supple. No JVD or thyromegaly LUNGS: Respirations even and unlabored. Lungs essentially clear to auscultation bilaterally. HEART: Tachycardic. Irregular rate and rhythm. S1 and S2 heard. ABDOMEN: Soft. Nondistended. Nontender. EXTREMITIES: Normal range of motion. No clubbing or cyanosis. Peripheral pulses intact. No lower extremity edema NEUROLOGIC: Awake and alert. Oriented x 3. ASSESSMENT: Shortness of breath Acute on chronic heart failure with reduced ejection fraction, 35-40% New-onset atrial fibrillation with RVR New-onset cardiomyopathy, ischemic versus nonischemic Hypertension Hyperlipidemia Hypokalemia PLAN: Continue current cardiac medications Continue IV Lasix 40 mg every 12 hours Daily weights, accurate I&O, and monitoring of kidney function Begin IV amiodarone bolus and drip per protocol Continue telemetry monitoring Continue IV heparin at this time. Do not transition to oral anticoagulation due to need for cardiac catheterization in the future Nothing by mouth at midnight Cardiac catheterization to be performed. versus Monday. Further recommendations pending patient's course Nurse practitioner note has been reviewed by physician. Signing provider agrees with the documented findings, assessment, and plan of care. Objective - Vital Signs Vital signs: Vital Signs Temp 98 F 05/10/23 11:10 Pulse 115 H 05/10/23 11:10 Resp 18 05/10/23 11:10 BP 100/60 05/10/23 11:10 Pulse Ox 96 05/10/23 11:10 FiO2 Intake & Output 05/09/23 05/10/23 05/10/23 18:59 06:59 18:59 Intake Total 158.138 583.855 Output Total 2150 800 Balance 158.138 -2150 -216.145 Weight 97.522 kg 92 kg Intake: Intake, IV Titration 158.138 225.855 Amount Heparin Sod,Pork in 0.45% 158.138 225.855 NaCl 25,000 unit In 0.45 % NaCl 1 250ml.bag @ 10. 254 UNITS/KG/HR 10 mls/hr IV .Q24H [facility] Rx#: [id number] Oral 358 Output: Urine 2150 800 Other: Voiding Method Toilet Toilet Toilet Urinal Urinal Urinal # Voids 1 - Labs CBC & Chem 7: 05/10/23 08:23 05/10/23 08:23 Labs: Abnormal Lab Results - Last 24 Hours (Table) 05/09/23 05/10/23 05/10/23 Range/Units 15:41 08:23 08:23 APTT 44.8 H (22.0-30.0) sec Potassium 2.8 L (3.5-5.1) mmol/L Glucose 176 H (74-99) mg/dL Urine Protein Trace H (Negative) Urine Blood Trace H (Negative) Urine Mucus Rare H (None) /hpf
[2023-05-10] MEDS ORDERED: DEXTROSE 5% IN WATER 100 ML with AMIODARONE 150 MG IV ONE (12:20)
[2023-05-10] MEDS ORDERED: AMIODARONE 360 MG in DEXTROSE 5% IN WATER 200 ML IV ONE ×2 (12:30)
[2023-05-10] MEDS: ASPIRIN 81 MG PO SCH (12:47)
[2023-05-10] MEDS ORDERED: Magnesium Replacement Protocol 1 EACH MISC MISCELLANE PRN (14:48)
[2023-05-10] MEDS: FINASTERIDE 5 MG TAB PO SCH (15:04)
[2023-05-10] MEDS: AMIODARONE 450 MG in DEXTROSE 5% IN WATER 250 ML IV SCH ×2 (18:31)
[2023-05-10] MEDS: ATORVASTATIN 80 MG TAB PO SCH (20:22)
[2023-05-10] MEDS: DOXAZOSIN 2 MG TAB PO SCH (20:23)
[2023-05-10 21:25] LABS: African American GFR (CKD) 75 (>60 ml/min/1.73 sqM); Anion Gap 10 mmol/L; Blood Urea Nitrogen 20 mg/dL (9-20); Calcium 8.4 mg/dL (8.4-10.2); Carbon Dioxide 31 mmol/L (22-30); Chloride 99 mmol/L (98-107); Glucose 145 mg/dL (74-99); Non-African American GFR(CKD) 65 (>60 ml/min/1.73 sqM); Potassium 3.5 mmol/L (3.5-5.1); Sodium 140 mmol/L (137-145)
[2023-05-11] MEDS: carvediloL 12.5 MG TAB PO SCH ×2 (06:14→17:05)
[2023-05-11] MEDS: HEPARIN SOD,PORK IN 0.45% NACL 25,000 UNIT in 0.45% NACL 1 250ML.BAG IV SCH (06:15)
[2023-05-11] MEDS: AMIODARONE 450 MG in DEXTROSE 5% IN WATER 250 ML IV SCH ×2 (06:16)
--- NOTE | 2023-05-11 07:22 | PN ---
PROGRESS NOTE DATE OF SERVICE: 05/10/2023 SUBJECTIVE: This is a 72-year-old gentleman who was admitted with CHF acute exacerbation, also had new-onset atrial fibrillation. The patient has severe hypokalemia. The most recent chest x-ray which was done today which I reviewed personally by me showed some CHF and some cardiomegaly and 2D echo with Doppler showed ejection fraction 35% to 40% and severely dilated left atrium. Multiple consultants are following the patient, the patient is PAST MEDICAL HISTORY: Reviewed. REVIEW OF SYSTEMS: A 14-point review is negative except as mentioned earlier. CURRENT MEDICATIONS: Lasix, and rest of the dose and medications reviewed. PHYSICAL EXAMINATION: VITAL SIGNS: Pulse is 110, blood pressure is 102/70, respirations 16. HEENT: Conjunctivae normal. NECK: No JVD. CARDIOVASCULAR: S1, S2 muffled. RESPIRATIONS: Breath sounds diminished at the bases. A few scattered rhonchi. ABDOMEN: Soft. NERVOUS SYSTEM: Nonfocal. LABORATORY DATA: Potassium 2.8, rest of the labs are noted. Chest x-ray reviewed. ASSESSMENT: 1. CHF acute exacerbation, acute on chronic systolic dysfunction, ejection fraction 35% to 40%. 2. New-onset atrial fibrillation with fast ventricular rate, paroxysmal. 3. History of CHF. 4. Hypertension. 5. Hyperlipidemia. 6. Severe hypokalemia. 7. History of prostate disorder. 8. Remote history of nicotine dependence. RECOMMENDATIONS: Recommended to continue current management, continue symptomatic treatment, monitor potassium closely. I would recommend repeat lytes at 6 p.m., check magnesium protocols. The patient is currently on Lasix 40 mg IV twice daily. I recommended to put on regular dose of potassium also, continue to monitor. Further recommendations to follow. MMODL / IJN: [id number] / MTDD
[2023-05-11 07:42] LABS: Basophils % (A) 1 %; Eosinophils # (A) 0.2 k/uL (0-0.7); Eosinophils % (A) 3 %; HCT 41.7 % (39.0-53.0); HGB 13.6 gm/dL (13.0-17.5); Hypochromasia Slight; Lymphocytes # (A) 1.4 k/uL (1.0-4.8); Lymphocytes % (A) 23 %; MCH 28.4 pg (25.0-35.0); MCHC 32.5 g/dL (31.0-37.0); MCV 87.5 fL (80.0-100.0); Mean Platelet Volume 8.1; Monocytes # (A) 0.5 k/uL (0-1.0); Monocytes % (A) 8 %; Neutrophils # (A) 3.8 k/uL (1.3-7.7); Neutrophils % (A) 63 %; Platelet Count 172 k/uL (150-450); RBC 4.77 m/uL (4.30-5.90); RDW 14.4 % (11.5-15.5); WBC 6.1 k/uL (3.8-10.6)
[2023-05-11] MEDS: ASPIRIN 81 MG PO SCH (07:46)
[2023-05-11] MEDS: PANTOPRAZOLE 40 MG/10 ML VIAL IVP SCH ×2 (07:46→20:10)
[2023-05-11] MEDS: POTASSIUM CHLORIDE ER 20 MEQ TAB.ER PO SCH ×2 (07:46→20:10)
[2023-05-11] MEDS: lisinopriL 20 MG TAB PO SCH (07:46)
[2023-05-11 07:56] LABS: ALT 20 U/L (4-49); AST 18 U/L (17-59); African American GFR (CKD) 86 (>60 ml/min/1.73 sqM); Albumin 3.6 g/dL (3.5-5.0); Alkaline Phosphatase 53 U/L (38-126); Anion Gap 9 mmol/L; Blood Urea Nitrogen 18 mg/dL (9-20); Calcium 8.7 mg/dL (8.4-10.2); Carbon Dioxide 30 mmol/L (22-30); Chloride 102 mmol/L (98-107); Glucose 107 mg/dL (74-99); Magnesium 2.1 mg/dL (1.6-2.3); Non-African American GFR(CKD) 74 (>60 ml/min/1.73 sqM); Potassium 3.7 mmol/L (3.5-5.1); Sodium 141 mmol/L (137-145); Total Bilirubin 1.3 mg/dL (0.2-1.3); Total Protein 6.4 g/dL (6.3-8.2)
[2023-05-11] MEDS ORDERED: ALPRAZolam 0.5 MG TAB PO PRN (10:21)
[2023-05-11] MEDS ORDERED: NITROGLYCERIN SL TABS 0.4 MG TAB SUBLINGUAL PRN (10:21)
[2023-05-11] MEDS ORDERED: ASPIRIN 325 MG TAB PO STA (10:21)
[2023-05-11] MEDS ORDERED: ALPRAZolam 0.25 MG TAB PO PRN (10:21)
[2023-05-11] MEDS ORDERED: ATORVASTATIN 80 MG TAB PO STA (10:21)
[2023-05-11] MEDS ORDERED: SODIUM CHLORIDE 0.9% 1,000 ML in EMPTY BAG 1 BAG IV SCH (10:30)
[2023-05-11] MEDS: AMIODARONE 200 MG TAB PO SCH ×2 (10:53→20:10)
--- NOTE | 2023-05-11 13:39 | P.PN ---
Subjective HISTORY OF PRESENT ILLNESS: This is a 72-year-old male with a past medical history significant for hypertension, hyperlipidemia, and congestive heart failure. Patient follows with a hoseman out of [facility]. We have been asked to see the patient in consultation for new-onset atrial fibrillation. Patient examined at the bedside in the emergency room. Patient presented to the hospital for chief complaint of shortness of breath. He states over the weekend he became extremely short of breath with minimal exertion such as walking around his house. He denied having any chest pain or pressure. He presented to the hospital for further evaluation. The patient was found to be in atrial fibrillation with RVR. The patient denies a history of atrial fibrillation. He was started on IV heparin. At the time of examination, he remains in atrial fibrillation with a heart rate around 140. Blood pressure stable. * EKG reveals A. fib with RVR * Chest xray cardiomegaly with pulmonary congestion, edema, small to moderate pleural effusions. * Chest CTA: Negative for pulmonary embolism, moderate cardiomegaly with findings of vascular congestion, edema, and bilateral pleural effusions suggesting moderate to severe CHF * Laboratory data: Troponin negative 3. ProBNP 7410. * Current home cardiac medications include rosuvastatin 40 mg at night, carvedilol 25 mg twice a day, lisinopril 20 mg daily. * Echocardiogram obtained this admission reveals ejection fraction 35-40%, mild MR, mild AI, [id number] TR * Cardiac catheterization history: Patient denies 05/10/2023 Patient examined this morning at the bedside. Patients is present. Patient currently denies chest pain or pressure. He reports significant improvement in his breathing. He remains on IV Lasix 40 mg every 12 hours. Telemetry reveals atrial fibrillation with heart rate around 120. He remains on IV heparin. 05/11/2023 Patient examined this morning the bedside. Patient currently denies chest pain or pressure. He denies shortness of breath. He states he is able to lay flat in bed comfortably. He remains on IV heparin and IV amiodarone. Telemetry reveals atrial fibrillation with controlled ventricular rate. PHYSICAL EXAM: VITAL SIGNS: Reviewed. GENERAL: Well-developed in no acute distress. HEENT: Head is normocephalic. Pupils are equal, round. Sclerae anicteric. Mucous membranes of the mouth are moist. Neck supple. No JVD or thyromegaly LUNGS: Respirations even and unlabored. Lungs essentially clear to auscultation bilaterally. HEART: Irregular rate and rhythm. S1 and S2 heard. ABDOMEN: Soft. Nondistended. Nontender. EXTREMITIES: Normal range of motion. No clubbing or cyanosis. Peripheral pulses intact. No lower extremity edema NEUROLOGIC: Awake and alert. Oriented x 3. ASSESSMENT: Shortness of breath Acute on chronic heart failure with reduced ejection fraction, 35-40% New-onset atrial fibrillation with RVR New-onset cardiomyopathy, ischemic versus nonischemic Hypertension Hyperlipidemia Hypokalemia PLAN: Continue current cardiac medications Continue IV Lasix. Decrease dosing to once daily Daily weights, accurate I&O, and monitoring of kidney function Begin oral amiodarone 400 mg twice a day after IV amiodarone infusion has completed Continue telemetry monitoring Continue IV heparin at this time. Do not transition to oral anticoagulation due to need for cardiac catheterization Patient to undergo cardiac catheterization today with Dr. Pozo Further recommendations pending patient's course Nurse practitioner note has been reviewed by physician. Signing provider agrees with the documented findings, assessment, and plan of care. Objective - Vital Signs Vital signs: Vital Signs Temp 98.4 F 05/11/23 08:00 Pulse 111 H 05/11/23 11:47 Resp 18 05/11/23 11:47 BP 112/80 05/11/23 11:47 Pulse Ox 98 05/11/23 11:47 FiO2 Intake & Output 05/10/23 05/11/23 05/11/23 18:59 06:59 18:59 Intake Total 1061.855 442.405 Output Total 1400 600 Balance -338.145 442.405 -600 Weight 92.7 kg Intake: Intake, IV Titration 225.855 442.405 Amount Amiodarone 450 mg In 195.837 Dextrose 5% in Water 250 ml @ 0.5 MG/MIN 16.667 mls/hr IV .Q15H [facility] Rx#: [id number] Heparin Sod,Pork in 0.45% 225.855 246.568 NaCl 25,000 unit In 0.45 % NaCl 1 250ml.bag @ 10. 254 UNITS/KG/HR 10 mls/hr IV .Q24H [facility] Rx#: [id number] Oral 836 Output: Urine 1400 600 Other: Voiding Method Toilet Toilet Toilet Urinal Urinal Urinal # Voids 1 - Labs CBC & Chem 7: 05/11/23 07:06 05/11/23 07:06 Labs: Abnormal Lab Results - Last 24 Hours (Table) 05/10/23 05/11/23 05/11/23 Range/Units 20:10 07:06 07:06 APTT 51.1 H (22.0-30.0) sec Carbon Dioxide 31 H (22-30) mmol/L Glucose 145 H 107 H (74-99) mg/dL
[2023-05-11] MEDS: FUROSEMIDE 10 MG/ML 4 ML VIAL IV SCH (13:40)
[2023-05-11] MEDS ORDERED: HEPARIN SODIUM 1,000 UN/ML (10ML VL) ONE (13:41)
[2023-05-11] MEDS ORDERED: VERAPAMIL 2.5 MG/ML 2 ML AMP ONE (13:41)
[2023-05-11] MEDS ORDERED: LIDOCAINE 1% INJ 10MG/ML (20 ML MDV) ONE (13:41)
[2023-05-11] MEDS ORDERED: MIDAZOLAM 2 MG/2 ML VIAL IVP ONE (14:00)
[2023-05-11] MEDS ORDERED: LIDOCAINE 1% INJ 10MG/ML (5 ML VIAL-PF) SQ ONE (14:01)
[2023-05-11] MEDS ORDERED: IV FLUID CONTINUATION 1,000 ML IV ONE (14:05)
[2023-05-11] MEDS ORDERED: VERAPAMIL SYRINGE (5 MG/10 ML) INTRAARTER ONE (14:05)
[2023-05-11] MEDS ORDERED: IOPAMIDOL-370 100ML BTL INJ ONE (14:23)
--- NOTE | 2023-05-11 14:34 | P.PCN ---
Date of Procedure: 05/11/23 Operative Findings: CARDIAC CATHETERIZATION PERFORMING PHYSICIAN: Silvestre Pozo MD, RPVI PROCEDURE PERFORMED: 1. Selective right and left coronary angiogram 2. Ultrasound-guided access of the right radial artery INDICATION: Cardiomyopathy COMPLICATION: None APPROACH: Right radial artery LEVEL OF SEDATION: Moderate with a sedation length of 20 minutes PROCEDURE DESCRIPTION: After obtaining an informed consent, the patient was brought to cardiac laborer [facility]. Local anesthesia was performed using lidocaine subcutaneously. The right radial artery was cannulated using Seldinger technique, the guidewire passed easily, following that we advanced a 5-Jamaican sheath dilator assembly, the wire and dilator were removed and sheath was flushed. Following that, 2 mg of verapamil Selective right and left coronary angiogram using a 6-Jamaican JR4 and JL 3.5 catheters. The procedure was completed there was no complication. SELECTIVE CORONARY ANGIOGRAM: The right coronary artery: Large-caliber vessel and is dominant vessel appears to have mild disease only. Left main: Has mild disease only. Bifurcates into an LCx and LAD The left circumflex: Large caliber vessel and nondominant dominant vessel. The LCx is angiographically normal. Gives rises into a large OM branch which has mild disease only. OM to also appeared to have mild disease only. The left anterior descending artery: Large caliber vessel. The LAD appeared to be angiographically normal. Gives rises into multiple diagonal branches appears to be angiographically normal CONCLUSION: 1. Mild nonobstructive coronary artery disease POSTPROCEDURE MANAGEMENT: Medical treatment
[2023-05-11] MEDS ORDERED: RX INFO: IV CONTRAST WAS GIVEN 1 EACH MISC MISCELLANE PRN (14:35)
[2023-05-11 14:51] VITALS: RESP 16
[2023-05-11] MEDS: FINASTERIDE 5 MG TAB PO SCH (15:38)
[2023-05-11] MEDS: DOXAZOSIN 2 MG TAB PO SCH (20:10)
[2023-05-11] MEDS: ATORVASTATIN 80 MG TAB PO SCH (20:10)
[2023-05-11] MEDS: ACETAMINOPHEN TAB 325 MG TAB PO PRN (21:38)
--- NOTE | 2023-05-11 23:07 | PN ---
PROGRESS NOTE DATE OF SERVICE: 05/10/2023 SUBJECTIVE: This 72-year-old gentleman admitted with CHF acute exacerbation and new-onset atrial fibrillation, underwent cardiac catheterization by Cardiology, showed only mild nonobstructive coronary disease. Medical treatment is recommended. No chest pain, no palpitation. OBJECTIVE: VITAL SIGNS: Pulse is 105, blood pressure 119/80, respirations 16. CHEST: Clear to auscultation. CARDIOVASCULAR: S1, S2. ABDOMEN: Soft. NERVOUS SYSTEM: Nonfocal. LABS: Potassium 3.7, rest of the labs are noted. ASSESSMENT: 1. CHF acute exacerbation, acute on chronic systolic dysfunction, ejection fraction 35% to 40%. 2. New-onset atrial fibrillation with fast ventricular rate, paroxysmal. 3. History of CHF. 4. Status post cardiac catheterization showed mild nonobstructive coronary artery disease. 5. Hypertension. 6. Hyperlipidemia. 7. Severe hypokalemia. 8. History of prostate disorder. 9. History of nicotine dependence. RECOMMENDATIONS: Recommended to continue current management, continue symptomatic treatment, continue Lasix which dose has been decreased. We will continue to monitor. Guarded prognosis. Further recommendations to follow. Repeat labs in the morning. MMODL / IJN: [id number] /
[2023-05-12] MEDS: HEPARIN SOD,PORK IN 0.45% NACL 25,000 UNIT in 0.45% NACL 1 250ML.BAG IV SCH
[2023-05-12] MEDS: carvediloL 12.5 MG TAB PO SCH (06:14)
[2023-05-12] MEDS ORDERED: HEPARIN SODIUM,PORCINE 10,000 UNIT in SODIUM CHLORIDE 0.9% 1,000 ML IRRIGATION PRN (07:00)
[2023-05-12] MEDS ORDERED: HEPARIN SODIUM,PORCINE (1 ML) 2,500 UNIT in SODIUM CHLORIDE 0.9% 250 ML IRRIGATION PRN (07:00)
[2023-05-12] MEDS: POTASSIUM CHLORIDE ER 20 MEQ TAB.ER PO SCH (08:04)
[2023-05-12] MEDS: AMIODARONE 200 MG TAB PO SCH (08:04)
[2023-05-12] MEDS: ASPIRIN 81 MG PO SCH (08:04)
[2023-05-12] MEDS: lisinopriL 20 MG TAB PO SCH (08:04)
[2023-05-12] MEDS: PANTOPRAZOLE 40 MG/10 ML VIAL IVP SCH (08:05)
[2023-05-12 08:13] VITALS: BP 110/74; PULSE 115; TEMP 98.3
[2023-05-12] MEDS ORDERED: FUROSEMIDE 10 MG/ML 4 ML VIAL IV SCH (09:00)
[2023-05-12] MEDS ORDERED: SPIRONOLACTONE 25 MG TAB PO SCH (09:15)
[2023-05-12] MEDS ORDERED: APIXABAN 5 MG TAB PO SCH (09:15)
[2023-05-12 09:36] LABS: Basophils % (A) 1 %; Eosinophils # (A) 0.2 k/uL (0-0.7); Eosinophils % (A) 3 %; HCT 42.6 % (39.0-53.0); HGB 13.9 gm/dL (13.0-17.5); Hypochromasia Slight; Lymphocytes # (A) 1.1 k/uL (1.0-4.8); Lymphocytes % (A) 16 %; MCH 28.5 pg (25.0-35.0); MCHC 32.5 g/dL (31.0-37.0); MCV 87.7 fL (80.0-100.0); Mean Platelet Volume 8.1; Monocytes # (A) 0.5 k/uL (0-1.0); Monocytes % (A) 7 %; Neutrophils # (A) 4.6 k/uL (1.3-7.7); Neutrophils % (A) 71 %; Platelet Count 189 k/uL (150-450); RBC 4.86 m/uL (4.30-5.90); RDW 14.5 % (11.5-15.5); WBC 6.5 k/uL (3.8-10.6)
[2023-05-12 10:14] LABS: African American GFR (CKD) 86 (>60 ml/min/1.73 sqM); Anion Gap 11 mmol/L; Blood Urea Nitrogen 16 mg/dL (9-20); Calcium 8.8 mg/dL (8.4-10.2); Carbon Dioxide 26 mmol/L (22-30); Chloride 104 mmol/L (98-107); Glucose 136 mg/dL (74-99); Non-African American GFR(CKD) 74 (>60 ml/min/1.73 sqM); Potassium 4.1 mmol/L (3.5-5.1); Sodium 141 mmol/L (137-145)
--- NOTE | 2023-05-12 13:13 | P.PN ---
Subjective HISTORY OF PRESENT ILLNESS: This is a 72-year-old male with a past medical history significant for hypertension, hyperlipidemia, and congestive heart failure. Patient follows with a shop welder out of [facility]. We have been asked to see the patient in consultation for new-onset atrial fibrillation. Patient examined at the bedside in the emergency room. Patient presented to the hospital for chief complaint of shortness of breath. He states over the weekend he became extremely short of breath with minimal exertion such as walking around his house. He denied having any chest pain or pressure. He presented to the hospital for further evaluation. The patient was found to be in atrial fibrillation with RVR. The patient denies a history of atrial fibrillation. He was started on IV heparin. At the time of examination, he remains in atrial fibrillation with a heart rate around 140. Blood pressure stable. * EKG reveals A. fib with RVR * Chest xray cardiomegaly with pulmonary congestion, edema, small to moderate pleural effusions. * Chest CTA: Negative for pulmonary embolism, moderate cardiomegaly with findings of vascular congestion, edema, and bilateral pleural effusions suggesting moderate to severe CHF * Laboratory data: Troponin negative 3. ProBNP 7410. * Current home cardiac medications include rosuvastatin 40 mg at night, carvedilol 25 mg twice a day, lisinopril 20 mg daily. * Echocardiogram obtained this admission reveals ejection fraction 35-40%, mild MR, mild AI, [id number] TR * Cardiac catheterization history: Patient denies 05/10/2023 Patient examined this morning at the bedside. Patients is present. Patient currently denies chest pain or pressure. He reports significant improvement in his breathing. He remains on IV Lasix 40 mg every 12 hours. Telemetry reveals atrial fibrillation with heart rate around 120. He remains on IV heparin. 05/11/2023 Patient examined this morning the bedside. Patient currently denies chest pain or pressure. He denies shortness of breath. He states he is able to lay flat in bed comfortably. He remains on IV heparin and IV amiodarone. Telemetry reveals atrial fibrillation with controlled ventricular rate. 05/12/2023 Patient examined this morning at the bedside. He is status post cardiac catheterization revealing mild nonobstructive coronary artery disease. Patient currently denies chest pain or pressure. He denies shortness of breath. Telemetry reveals atrial fibrillation with controlled ventricular rate. He remains on IV upper and. Patient also remains on IV Lasix. PHYSICAL EXAM: VITAL SIGNS: Reviewed. GENERAL: Well-developed in no acute distress. HEENT: Head is normocephalic. Pupils are equal, round. Sclerae anicteric. Mucous membranes of the mouth are moist. Neck supple. No JVD or thyromegaly LUNGS: Respirations even and unlabored. Lungs essentially clear to auscultation bilaterally. HEART: Irregular rate and rhythm. S1 and S2 heard. ABDOMEN: Soft. Nondistended. Nontender. EXTREMITIES: Normal range of motion. No clubbing or cyanosis. Peripheral pu lses intact. No lower extremity edema NEUROLOGIC: Awake and alert. Oriented x 3. ASSESSMENT: Shortness of breath Acute on chronic heart failure with reduced ejection fraction, 35-40% New-onset atrial fibrillation with RVR New-onset cardiomyopathy, nonischemic Mild nonobstructive coronary artery disease Hypertension Hyperlipidemia Hypokalemia PLAN: Continue IV heparin. Begin Eliquis 5 mg twice a day Discontinue IV Lasix Begin oral Lasix 40 mg daily Add Aldactone 12.5 mg daily Continue additional cardiac medications Patient may be discharged home today from a cardiac standpoint He is to follow up post discharge in the office with Dr. Pozo Nurse practitioner note has been reviewed by physician. Signing provider agrees with the documented findings, assessment, and plan of care. Objective - Vital Signs Vital signs: Vital Signs Temp 98.3 F 05/12/23 07:52 Pulse 115 H 05/12/23 07:56 Resp 16 05/12/23 07:56 BP 110/74 05/12/23 07:52 Pulse Ox 97 05/12/23 07:52 FiO2 Intake & Output 05/11/23 05/12/23 05/12/23 18:59 06:59 18:59 Intake Total 50 212.113 358 Output Total 600 Balance -550 212.113 358 Intake: IV 50 Intake, IV Titration 212.113 Amount Heparin Sod,Pork in 0.45% 212.113 NaCl 25,000 unit In 0.45 % NaCl 1 250ml.bag @ 10. 254 UNITS/KG/HR 10 mls/hr IV .Q24H [facility] Rx#: [id number] Oral 358 Output: Urine 600 Other: Voiding Method Toilet Toilet Toilet Urinal Urinal Urinal - Labs CBC & Chem 7: 05/12/23 09:13 05/12/23 09:13 Labs: Abnormal Lab Results - Last 24 Hours (Table) 05/12/23 05/12/23 Range/Units 09:13 09:13 APTT 60.4 H (22.0-30.0) sec Glucose 136 H (74-99) mg/dL
[2023-05-12 14:37] LABS: LDL Cholesterol,Calculated 54.9 mg/dL (0.0-131.0); VLDL Calculation 14.52 mg/dL (5.00-40.00)
--- NOTE | 2023-05-12 22:55 | DS ---
DISCHARGE SUMMARY FINAL DIAGNOSES: 1. Congestive heart failure acute exacerbation with acute on chronic systolic dysfunction, ejection fraction 35% to 40%. 2. New onset atrial fibrillation with fast ventricular rate, paroxysmal. 3. History of congestive heart failure. 4. Status post cardiac catheterization showed mild nonobstructive coronary artery disease. 5. Hypertension. 6. Hyperlipidemia. 7. Severe hypokalemia, improved. 8. History of prostate disorder. 9. History of nicotine dependence. DISCHARGE DISPOSITION: The patient will be discharged in stable condition and guarded prognosis. Total time taken 35 minutes. HISTORY OF PRESENT ILLNESS: This is a 72-year-old gentleman with past medical history of medical problems, admitted with multiple complex medical issues as mentioned earlier. The patient has CHF and atrial fibrillation, treated medically, improved significantly. Cardiology performed a cardiac cath also, it showed nonobstructive coronary artery disease. Recommend outpatient followup otherwise. PHYSICAL EXAMINATION: VITAL SIGNS: Stable. CARDIOVASCULAR: S1, S2 muffled. ABDOMEN: Soft. NERVOUS SYSTEM: No focal deficits. DISCHARGE ADVICE AND MEDICATIONS: The patient will be discharged with recommendations to follow up with Dr. Pozo and primary physician. CBC, BMP with primary physician. The new orders are, 1. Aldactone 12.5 mg daily. 2. Aspirin 81 mg p.o. daily. 3. Eliquis 5 mg p.o. b.i.d. 4. KCl 20 mEq p.o. daily. 5. Lasix 40 mg p.o. daily. 6. Cordarone 400 mg p.o. b.i.d., dose to be adjusted by Cardiology in the outpatient setting. MMODL / IJN: [id number] /
[2023-05-13] MEDS ORDERED: FUROSEMIDE 40 MG TAB PO SCH (09:00)
== END 2023-05-12 12:34 | disposition home health service (06) | DRG 286 ==
LOC: EC 10:15 → 3SCARD 15:43
PROVIDERS: ADMIT Hospitalist; ATTEND Hospitalist
PROC: B2111ZZ Fluoroscopy of Multiple Coronary Arteries using Low Osmolar Contrast (ICD-10-PCS; principal; 2023-05-11 12:25)
DX: I11.0 Hypertensive heart disease with heart failure (principal); I50.23 Acute on chronic systolic (congestive) heart failure; E78.5 Hyperlipidemia, unspecified; I48.91 Unspecified atrial fibrillation; I25.5 Ischemic cardiomyopathy; E87.6 Hypokalemia; I42.8 Other cardiomyopathies; I25.10 Atherosclerotic heart disease of native coronary artery without angina pectoris; R53.1 Weakness; N42.9 Disorder of prostate, unspecified; Z11.52 Encounter for screening for COVID-19; I08.3 Combined rheumatic disorders of mitral, aortic and tricuspid valves; Z86.79 Personal history of other diseases of the circulatory system; Z79.899 Other long term (current) drug therapy
CPT/HCPCS: 36415; 71045; 71046; 71275; 76937; 80048; 80053; 80061; 81001; 83735; 83880; 84443; 84484; 85025; 85379; 85610; 85730; 87636; 93005; 93306; 93454; 96365; 96366; 96367; 96375; 96376; 99291

== ENCOUNTER 2023-05-14 10:05 | Observation (INO) | payer MEDICARE ==
[2023-05-14 11:23] LABS: Basophils % (A) 1 %; Eosinophils # (A) 0.1 k/uL (0-0.7); Eosinophils % (A) 2 %; HCT 44.4 % (39.0-53.0); HGB 14.6 gm/dL (13.0-17.5); Lymphocytes # (A) 1.4 k/uL (1.0-4.8); Lymphocytes % (A) 22 %; MCH 28.6 pg (25.0-35.0); MCV 86.5 fL (80.0-100.0); Mean Platelet Volume 8.1; Monocytes # (A) 0.4 k/uL (0-1.0); Monocytes % (A) 6 %; Neutrophils # (A) 4.4 k/uL (1.3-7.7); Neutrophils % (A) 67 %; Platelet Count 194 k/uL (150-450); RBC 5.13 m/uL (4.30-5.90); RDW 14.3 % (11.5-15.5); WBC 6.5 k/uL (3.8-10.6)
--- NOTE | 2023-05-14 11:25 | XR ---
EXAMINATION TYPE: XR chest 2V DATE OF EXAM: 05/14/2023 COMPARISON: 05/10/2023 INDICATION: Chest pain hypotension TECHNIQUE: Frontal and lateral views of the chest are obtained. FINDINGS: The heart size is enlarged, stable. The pulmonary vasculature is normal. Minimal bibasilar infiltrates. Present. Correlate for subsegmental atelectasis.. IMPRESSION: 1. Stable cardiomegaly. 2. Mild subsegmental atelectasis bilateral lung bases.
[2023-05-14 11:32] LABS: INR 1.1 (<1.2); Partial Thromboplastin Time 25.5 sec (22.0-30.0)
[2023-05-14 11:39] LABS: ALT 32 U/L (4-49); AST 33 U/L (17-59); African American GFR (CKD) 87 (>60 ml/min/1.73 sqM); Alkaline Phosphatase 55 U/L (38-126); Anion Gap 10 mmol/L; Blood Urea Nitrogen 16 mg/dL (9-20); Carbon Dioxide 27 mmol/L (22-30); Chloride 102 mmol/L (98-107); Glucose 123 mg/dL (74-99); Magnesium 2.2 mg/dL (1.6-2.3); Non-African American GFR(CKD) 75 (>60 ml/min/1.73 sqM); Potassium 4.6 mmol/L (3.5-5.1); Sodium 139 mmol/L (137-145); Total Protein 7.1 g/dL (6.3-8.2)
[2023-05-14 11:45] LABS: NT-Pro-B-Type Natriuretic Pept 2010 pg/mL
[2023-05-14] MEDS ORDERED: NALOXONE 0.4 MG/ML 1 ML VIAL IV PRN (12:58)
--- NOTE | 2023-05-14 13:11 | ED ---
General Adult HPI - General Chief complaint: Recheck/Abnormal Lab/Rx Stated complaint: low blood pressure Time Seen by Provider: 05/14/23 12:57 Source: patient, RN notes reviewed, old records reviewed Mode of arrival: ambulatory Limitations: no limitations - History of Present Illness Initial comments: 72-year-old male presenting for evaluation of hypotension. Patient has had multiple blood pressure readings at home in the 80s systolic. He does feel somewhat weak he was admitted with rapid atrial fibrillation and CHF. He had multiple medication adjustments and required multi antiarrhythmics for heart rate control. He denies chest pain. States that his breathing is improved. - Related Data Home Medications Medication Instructions Recorded Confirmed Doxazosin [Cardura] 2 mg PO HS 05/08/23 05/08/23 Finasteride [Proscar] 5 mg PO DAILY@1500 05/08/23 05/08/23 Rosuvastatin Calcium [Crestor] 40 mg PO HS 05/08/23 05/08/23 Sildenafil [Revatio] 20 mg PO DAILY@1500 05/08/23 05/08/23 carvediloL [Coreg] 25 mg PO BID 05/08/23 05/08/23 lisinopriL [Prinivil] 20 mg PO DAILY 05/08/23 05/08/23 Previous Rx's Medication Instructions Recorded Amiodarone [Cordarone] 400 mg PO BID #30 tab 05/12/23 Apixaban [Eliquis] 5 mg PO BID #60 tab 05/12/23 Aspirin 81 mg PO DAILY #30 tab 05/12/23 Furosemide [Lasix] 40 mg PO DAILY #30 tab 05/12/23 Potassium Chloride ER [K-Dur 20] 20 meq PO DAILY #30 tab 05/12/23 Spironolactone [Aldactone] 12.5 mg PO DAILY #30 tab 05/12/23 Allergies Allergy/AdvReac Type Severity Reaction Status Date / Time No Known Allergies Allergy Verified 05/14/23 10:33 Review of Systems ROS Statement: Those systems with pertinent positive or pertinent negative responses have been documented in the HPI. ROS Other: All systems not noted in ROS Statement are negative. Past Medical History Past Medical History: Atrial Fibrillation, Heart Failure, Hyperlipidemia, Hypertension, Prostate Disorder History of Any Multi-Drug Resistant Organisms: None Reported Past Surgical History: Ear Surgery Additional Past Surgical History / Comment(s): hearing aids Past Anesthesia/Blood Transfusion Reactions: No Reported Reaction Past Psychological History: No Psychological Hx Reported Smoking Status: Former smoker Past Alcohol Use History: Rare Past Drug Use History: None Reported - Past Family History Sister(s) Family Medical History: Cancer Brother(s) Family Medical History: Myocardial Infarction (ME) Father Family Medical History: Dementia General Exam Limitations: no limitations General appearance: alert, in no apparent distress Head exam: Present: atraumatic, normocephalic Eye exam: Present: normal appearance, PERRL ENT exam: Present: normal exam Neck exam: Present: normal inspection. Absent: tenderness, meningismus Respiratory exam: Present: normal lung sounds bilaterally. Absent: respiratory distress, wheezes Cardiovascular Exam: Present: regular rate, irregular rhythm GI/Abdominal exam: Present: soft. Absent: distended, tenderness Extremities exam: Present: normal inspection, normal capillary refill. Absent: pedal edema Neurological exam: Present: alert, oriented X3, CN II-XII intact. Absent: motor sensory deficit Psychiatric exam: Present: normal affect, normal mood Skin exam: Present: warm, dry, intact Course Vital Signs 05/14/23 05/14/23 10:26 12:39 Temperature 98 F Pulse Rate 72 68 Respiratory 18 14 Rate Blood Pressure 106/68 99/64 O2 Sat by Pulse 94 L 100 Oximetry Medical Decision Making - Medical Decision Making Was pt. sent in by a medical professional or institution (Dr. PA, BLINDMAKER, urgent care, hospital, or longterm...) When possible be specific @ -No Did you speak to anyone other than the patient for history (EMS, parent, family, police, friend...)? What history was obtained from this source @ -No Did you review nursing and triage notes (agree or disagree)? Why? @ -I reviewed and agree with nursing and triage notes Were old charts reviewed (outside hosp., previous admission, EMS record, old EKG, old radiological studies, urgent care reports/EKG's, longterm records)? Report findings @ -No old charts were reviewed Differential Diagnosis (chest pain, altered mental status, abdominal pain women, abdominal pain men, vaginal bleeding, weakness, fever, dyspnea, syncope, headache, dizziness, GI bleed, back pain, seizure, CVA, palpatations, mental health, musculoskeletal)? @ Differential Weakness: Hypoglycemia, shock, sepsis, hyponatremia, anemia, infection, ME, ETOH, adverse medicine reaction, overdose, stroke, this is not meant to be an all-inclusive list. EKG interpreted by me (3pts min.). @ Atrial fibrillation with left anterior fascicular block, rate of 84, QRS duration 114, QTC [address] segment elevation X-rays interpreted by me (1pt min.). @ Chest x-ray showing basilar atelectasis without pneumothorax or focal pneumonia, cardiomegaly is present. CT interpreted by me (1pt min.). @ -None done U/S interpreted by me (1pt. min.). @ -None done What testing was considered but not performed or refused? (CT, X-rays, U/S, labs)? Why? @ -None What meds were considered but not given or refused? Why? @ -None Did you discuss the management of the patient with other professionals (professionals i.e. , PA, BLINDMAKER, lab, RT, psych nurse, social media executive, dye and chemical coordinator, teacher, navigating officer, case managers)? Give summary @ -EMH Was smoking cessation discussed for >3mins.? @ -No Was critical care preformed (if so, how long)? @ -No Were there social determinants of health that impacted care today? How? ( Homelessness, low income, unemployed, alcoholism, drug addiction, transportation, low edu. Level, literacy, decrease access to med. care, usp, rehab)? @ -No Was there de-escalation of care discussed even if they declined (Discuss DNR or withdrawal of care, Hospice)? DNR status @ -No What co-morbidities impacted this encounter? (DM, HTN, Smoking, COPD, CAD, Cancer, CVA, ARF, Chemo, Hep., AIDS, mental health diagnosis, sleep apnea, morbid obesity)? @ -[A fibrillation, congestive heart failure Was patient admitted / discharged? Hospital course, mention meds given and route, prescriptions, significant lab abnormalities, going to OR and other pertinent info. @ -72-year-old male with hypotension. The pressures in the emergency department are low normal. He he isn't rate controlled atrial fibrillation. Laboratory testing unremarkable. Chest x-ray relatively clear. Patient will be observed overnight, his lisinopril will be held. His antiarrhythmic medic ations will be continued for rate control. Case discussed with Dr. Nohelia reynoso for cardiology and Dr. Cee Undiagnosed new problem with uncertain prognosis? @ -No Drug Therapy requiring intensive monitoring for toxicity (Heparin, Nitro, Insulin, Cardizem)? @ -No Were any procedures done? @ -No Diagnosis/symptom? @ -hypotension secondary to medication Acute, or Chronic, or Acute on Chronic? @ -acute Uncomplicated (without systemic symptoms) or Complicated (systemic symptoms)? @ -default Side effects of treatment? @ -No Exacerbation, Progression, or Severe Exacerbation? @ -No Poses a threat to life or bodily function? How? (Chest pain, USA, ME, pneumonia, PE, COPD, DKA, ARF, appy, cholecystitis, CVA, Diverticulitis, Homicidal, Suicidal, threat to staff... and all critical care pts) @ -[yes, hypotension - Lab Data Result diagrams: 05/14/23 10:54 05/14/23 10:54 Lab Results 05/14/23 05/14/23 05/14/23 Range/Units 10:54 10:54 10:54 WBC 6.5 (3.8-10.6) k/uL RBC 5.13 (4.30-5.90) m/uL Hgb 14.6 (13.0-17.5) gm/dL Hct 44.4 (39.0-53.0) % MCV 86.5 (80.0-100.0) fL MCH 28.6 (25.0-35.0) pg MCHC 33.0 (31.0-37.0) g/dL RDW 14.3 (11.5-15.5) % Plt Count 194 (150-450) k/uL MPV 8.1 Neutrophils % 67 % Lymphocytes % 22 % Monocytes % 6 % Eosinophils % 2 % Basophils % 1 % Neutrophils # 4.4 (1.3-7.7) k/uL Lymphocytes # 1.4 (1.0-4.8) k/uL Monocytes # 0.4 (0-1.0) k/uL Eosinophils # 0.1 (0-0.7) k/uL Basophils # 0.0 (0-0.2) k/uL PT 12.0 (10.0-12.5) sec INR 1.1 (<1.2) APTT 25.5 (22.0-30.0) sec Sodium 139 (137-145) mmol/L Potassium 4.6 (3.5-5.1) mmol/L Chloride 102 (98-107) mmol/L Carbon Dioxide 27 (22-30) mmol/L Anion Gap 10 mmol/L BUN 16 (9-20) mg/dL Creatinine 0.99 (0.66-1.25) mg/dL Est GFR (CKD-EPI)AfAm 87 (>60 ml/min/1.73 sqM) Est GFR (CKD-EPI)NonAf 75 (>60 ml/min/1.73 sqM) Glucose 123 H (74-99) mg/dL Calcium 9.0 (8.4-10.2) mg/dL Magnesium 2.2 (1.6-2.3) mg/dL Total Bilirubin 1.0 (0.2-1.3) mg/dL AST 33 (17-59) U/L ALT 32 (4-49) U/L Alkaline Phosphatase 55 (38-126) U/L Troponin I (0.000-0.034) ng/mL NT-Pro-B Natriuret Pep 2010 pg/mL Total Protein 7.1 (6.3-8.2) g/dL Albumin 4.0 (3.5-5.0) g/dL 05/14/23 Range/Units 10:54 WBC (3.8-10.6) k/uL RBC (4.30-5.90) m/uL Hgb (13.0-17.5) gm/dL Hct (39.0-53.0) % MCV (80.0-100.0) fL MCH (25.0-35.0) pg MCHC (31.0-37.0) g/dL RDW (11.5-15.5) % Plt Count (150-450) k/uL MPV Neutrophils % % Lymphocytes % % Monocytes % % Eosinophils % % Basophils % % Neutrophils # (1.3-7.7) k/uL Lymphocytes # (1.0-4.8) k/uL Monocytes # (0-1.0) k/uL Eosinophils # (0-0.7) k/uL Basophils # (0-0.2) k/uL PT (10.0-12.5) sec INR (<1.2) APTT (22.0-30.0) sec Sodium (137-145) mmol/L Potassium (3.5-5.1) mmol/L Chloride (98-107) mmol/L Carbon Dioxide (22-30) mmol/L Anion Gap mmol/L BUN (9-20) mg/dL Creatinine (0.66-1.25) mg/dL Est GFR (CKD-EPI)AfAm (>60 ml/min/1.73 sqM) Est GFR (CKD-EPI)NonAf (>60 ml/min/1.73 sqM) Glucose (74-99) mg/dL Calcium (8.4-10.2) mg/dL Magnesium (1.6-2.3) mg/dL Total Bilirubin (0.2-1.3) mg/dL AST (17-59) U/L ALT (4-49) U/L Alkaline Phosphatase (38-126) U/L Troponin I <0.012 (0.000-0.034) ng/mL NT-Pro-B Natriuret Pep pg/mL Total Protein (6.3-8.2) g/dL Albumin (3.5-5.0) g/dL Disposition Clinical Impression: Atrial fibrillation, Hypotension Disposition: ADMITTED IP TO THIS HOSP Condition: Stable Is patient prescribed a controlled substance at d/c from ED?: No Referrals: Fernando Bagley MD [Primary Care Provider] - 1-2 days Time of Disposition: 13:12
[2023-05-14] MEDS: SILDENAFIL 20 MG TAB PO SCH (16:16)
[2023-05-14] MEDS: FINASTERIDE 5 MG TAB PO SCH (16:25)
[2023-05-14] MEDS ORDERED: carvediloL 12.5 MG TAB PO SCH (17:30)
[2023-05-14] MEDS: carvediloL 12.5 MG TAB PO SCH (19:20)
[2023-05-14] MEDS ORDERED: DOXAZOSIN 2 MG TAB PO SCH (21:00)
[2023-05-14 21:23] LABS: Appearance,Urine Clear (Clear); Bilirubin,Urine Negative (Negative); Blood,Urine Trace (Negative); Color,Urine Yellow; Glucose,Urine (UA) Negative (Negative); Hyaline Casts,Urine 1 /lpf (0-2); Ketones,Urine Negative (Negative); Leukocyte Esterase,Urine Negative (Negative); Mucus,Urine Occasional /hpf; Nitrite,Urine Negative (Negative); Protein,Urine Trace (Negative); RBC,Urine 1 /hpf (0-5); Specific Gravity,Urine 1.018 (1.001-1.035); WBC,Urine 2 /hpf (0-5)
[2023-05-14] MEDS: ATORVASTATIN 80 MG TAB PO SCH (21:33)
[2023-05-14] MEDS: AMIODARONE 200 MG TAB PO SCH (21:33)
[2023-05-14] MEDS: APIXABAN 5 MG TAB PO SCH (21:33)
--- NOTE | 2023-05-14 22:49 | HP ---
HISTORY AND PHYSICAL CHIEF COMPLAINT: Hypotension and weakness. HISTORY OF PRESENT ILLNESS: This is a 72-year-old gentleman with a past medical history of multiple medical problems, recently admitted with atrial ablation, fast ventricular rate, has CHF acute exacerbation, ejection fraction 35% to 40%. The patient underwent cardiac catheterization by Dr. Pozo, which showed nonobstructive coronary artery disease. Currently, blood pressure was 80 yesterday. There is no history of any fever, rigors, or chills at this time. No chest pain or palpitation. PAST MEDICAL HISTORY: Reviewed include atrial fibrillation, CHF, hypertension, rest of the history and rest of the chart is also reviewed. HOME MEDICATIONS: Reviewed include, 1. Coreg. 2. Crestor. 3. Proscar. 4. Cardura. 5. Lisinopril. PHYSICAL EXAMINATION: VITAL SIGNS: Pulse is 90, blood pressure 110/67, respirations 16. HEENT: Conjunctivae normal. NECK: No jugular venous distention. CARDIOVASCULAR: S1, S2. RESPIRATIONS: Scattered rhonchi. ABDOMEN: Soft. NERVOUS SYSTEM: Nonfocal. LABORATORY DATA: Reviewed. ASSESSMENT: 1. Hypotension, possibly medication induced with weakness. 2. History of CHF with chronic systolic dysfunction, ejection fraction 35% to 40%. 3. New-onset atrial fibrillation with paroxysmal. 4. Status post recent cardiac catheterization showing mild nonobstructive coronary disease. 5. Hypertension. 6. Hyperlipidemia. 7. Hypokalemia, improved. 8. History of prostate disorder. 9. History of nicotine dependence. RECOMMENDATIONS: Recommended to continue current management, continue symptomatic treatment. We will hold lisinopril. Monitor blood pressure closely. Otherwise, closely follow with Cardiology. Guarded prognosis because of multiple complex medical problems. Continue the Lasix and repeat labs in the morning. MMODL / IJN: [id number] /
[2023-05-15] MEDS ORDERED: lisinopriL 20 MG TAB PO SCH (09:15)
[2023-05-15] MEDS: SPIRONOLACTONE 25 MG TAB PO SCH (09:25)
[2023-05-15] MEDS: ASPIRIN 81 MG PO SCH (09:25)
[2023-05-15] MEDS: POTASSIUM CHLORIDE ER 20 MEQ TAB.ER PO SCH (09:26)
[2023-05-15] MEDS: FUROSEMIDE 40 MG TAB PO SCH (09:26)
[2023-05-15] MEDS: APIXABAN 5 MG TAB PO SCH ×2 (09:26→21:43)
[2023-05-15] MEDS: carvediloL 12.5 MG TAB PO SCH ×3 (09:27→17:47)
[2023-05-15] MEDS: AMIODARONE 200 MG TAB PO SCH ×2 (09:27→21:42)
[2023-05-15 10:17] LABS: Basophils # (A) 0.1 k/uL (0-0.2); Basophils % (A) 1 %; Eosinophils # (A) 0.2 k/uL (0-0.7); Eosinophils % (A) 2 %; HCT 45.9 % (39.0-53.0); HGB 15.1 gm/dL (13.0-17.5); Hypochromasia Slight; Lymphocytes # (A) 1.8 k/uL (1.0-4.8); Lymphocytes % (A) 25 %; MCH 28.9 pg (25.0-35.0); MCHC 32.8 g/dL (31.0-37.0); Mean Platelet Volume 8.2; Monocytes # (A) 0.4 k/uL (0-1.0); Monocytes % (A) 5 %; Neutrophils # (A) 4.7 k/uL (1.3-7.7); Neutrophils % (A) 65 %; Platelet Count 209 k/uL (150-450); RBC 5.22 m/uL (4.30-5.90); RDW 14.2 % (11.5-15.5); WBC 7.2 k/uL (3.8-10.6)
[2023-05-15 10:58] LABS: African American GFR (CKD) 82 (>60 ml/min/1.73 sqM); Anion Gap 10 mmol/L; Blood Urea Nitrogen 20 mg/dL (9-20); Calcium 9.4 mg/dL (8.4-10.2); Carbon Dioxide 27 mmol/L (22-30); Chloride 104 mmol/L (98-107); Glucose 108 mg/dL (74-99); Non-African American GFR(CKD) 71 (>60 ml/min/1.73 sqM); Potassium 4.5 mmol/L (3.5-5.1); Sodium 141 mmol/L (137-145)
--- NOTE | 2023-05-15 11:10 | P.CRDCN ---
History of Present Illness History of present illness: HISTORY OF PRESENT ILLNESS: This is a 72-year-old male with a past medical history significant for congestive heart failure, persistent atrial fibrillation, nonischemic cardiomyopathy, and hypertension. Patient follows in the office with Dr. Pozo. We have been asked to see the patient in consultation for hypotension. Patient examined at the bedside. Patient was recently admitted to the hospital secondary to cardiomyopathy, congestive heart failure, and new onset atrial fibrillation. He underwent cardiac catheterization revealing mild nonobstructive coronary artery disease. He was discharged home in stable condition. He presented back to the hospital secondary to hypotension. His is at the bedside and states that she checked his blood pressure at home and was found to have readings with a systolic in the 80s. The patient states that he felt tired but otherwise he denied any symptoms. He denies chest pain or pressure. He denies shortness of breath. He denies dizziness or lightheadedness. * EKG reveals atrial fibrillation with controlled ventricular rate * Chest xray stable cardiomegaly. Mild subsegmental atelectasis bilateral lung bases * Laboratory data: Troponin negative 1. ProBNP 2009. * Current home cardiac medications include amiodarone 400 mg twice a day, Eliquis 5 mg twice a day, aspirin 81 mg daily, Lasix 40 mg daily, rosuvastatin 40 mg at night, Aldactone 4.5 mg daily, carvedilol 25 mg twice a day, and lisinopril 20 mg daily * Most recent echocardiogram obtained in May 2023 revealed ejection fraction 35-40%, [id number] TR, mild MR * Cardiac catheterization history: May 2023 revealing mild nonobstructive co ronary artery disease REVIEW OF SYSTEMS: At the time of my exam: CONSTITUTIONAL: Denies fever or chills. HEENT: Denies blurred vision, vision changes, or eye pain. Denies hemoptysis CARDIOVASCULAR: Denies chest pain. Denies orthopnea. Denies PND. Denies palpitations RESPIRATORY: Denies shortness of breath. GASTROINTESTINAL: Denies abdominal pain. Denies nausea or vomiting. HEMATOLOGIC: Denies bleeding disorders. GENITOURINARY: Denies any blood in urine. SKIN: Denies pruitis. Denies rash. PHYSICAL EXAM: VITAL SIGNS: Reviewed. GENERAL: Well-developed in no acute distress. HEENT: Head is normocephalic. Pupils are equal, round. Sclerae anicteric. Mucous membranes of the mouth are moist. Neck supple. No JVD or thyromegaly LUNGS: Respirations even and unlabored. Lungs essentially clear to auscultation bilaterally. HEART: Irregular rate and rhythm. S1 and S2 heard. ABDOMEN: Soft. Nondistended. Nontender. EXTREMITIES: Normal range of motion. No clubbing or cyanosis. Peripheral pulses intact. No lower extremity edema NEUROLOGIC: Awake and alert. Oriented x 3. ASSESSMENT: Hypotension, asymptomatic Persistent atrial fibrillation, newly diagnosed Nonischemic cardiomyopathy, 35-40% Congestive heart failure with reduced ejection fraction, currently euvolemic History of hypertension Hyperlipidemia History of BPH PLAN: No need to repeat echocardiogram as this was performed earlier this month Resume all cardiac medications as patient was asymptomatic with a blood pressure of 8090 Discontinue Cardura which should help with improvement in hypotension Patient will require eventual atrial fibrillation ablation and AICD implantation Continue to monitor patient for an additional 24 hours Possible discharge home tomorrow Nurse practitioner note has been reviewed by physician. Signing provider agrees with the documented findings, assessment, and plan of care. Past Medical History Past Medical History: Atrial Fibrillation, Heart Failure, Hyperlipidemia, Hypertension, Prostate Disorder Additional Past Medical History / Comment(s): New onset Afib diagnosed 05/08/23. Patient admitted with hypotension this morning 05/14/23. History of Any Multi-Drug Resistant Organisms: None Reported Past Surgical History: Ear Surgery Additional Past Surgical History / Comment(s): hearing aids Past Anesthesia/Blood Transfusion Reactions: No Reported Reaction Past Psychological History: No Psychological Hx Reported Smoking Status: Former smoker Past Alcohol Use History: Rare Past Drug Use History: None Reported - Past Family History Sister(s) Family Medical History: Cancer Brother(s) Family Medical History: Myocardial Infarction ([place]) Father Family Medical History: Dementia Medications and Allergies Home Medications Medication Instructions Recorded Confirmed Type Doxazosin [Cardura] 2 mg PO HS 05/08/23 05/14/23 History Finasteride [Proscar] 5 mg PO DAILY@1500 05/08/23 05/14/23 History Rosuvastatin Calcium [Crestor] 40 mg PO HS 05/08/23 05/14/23 History Sildenafil [Revatio] 20 mg PO DAILY@1500 05/08/23 05/14/23 History carvediloL [Coreg] 25 mg PO BID 05/08/23 05/14/23 History lisinopriL [Prinivil] 20 mg PO DAILY 05/08/23 05/14/23 History Amiodarone [Cordarone] 400 mg PO BID #30 tab 05/12/23 05/14/23 Rx Apixaban [Eliquis] 5 mg PO BID #60 tab 05/12/23 05/14/23 Rx Aspirin 81 mg PO DAILY #30 tab 05/12/23 05/14/23 Rx Furosemide [Lasix] 40 mg PO DAILY #30 tab 05/12/23 05/14/23 Rx Potassium Chloride ER [K-Dur 20] 20 meq PO DAILY #30 tab 05/12/23 05/14/23 Rx Spironolactone [Aldactone] 12.5 mg PO DAILY #30 tab 05/12/23 05/14/23 Rx Allergies Allergy/AdvReac Type Severity Reaction Status Date / Time No Known Allergies Allergy Verified 05/14/23 15:12 Physical Exam Vitals: Vital Signs Temp Pulse Pulse Pulse Pulse Resp BP 05/15/23 02:50 98 F 89 14 05/14/23 20:49 97.7 F 96 14 05/14/23 20:00 18 05/14/23 16:10 89 05/14/23 16:05 96 05/14/23 16:00 89 05/14/23 15:00 97.4 F L 90 18 117/88 05/14/23 13:39 90 16 110/67 05/14/23 12:39 68 14 99/64 BP BP BP Pulse Ox 05/15/23 02:50 130/90 98 05/14/23 20:49 104/69 05/14/23 20:00 05/14/23 16:10 105/75 05/14/23 16:05 118/85 05/14/23 16:00 122/94 05/14/23 15:00 97 05/14/23 13:39 97 05/14/23 12:39 100 Intake and Output 05/14/23 05/15/23 05/15/23 22:59 06:59 14:59 Other: Voiding Method Toilet # Voids 3 3 Weight 90.718 kg Results 05/15/23 09:22 05/15/23 09:22 Cardiac Enzymes 05/14/23 05/14/23 Range/Units 10:54 10:54 AST 33 (17-59) U/L Troponin I <0.012 (0.000-0.034) ng/mL Coagulation 05/14/23 Range/Units 10:54 PT 12.0 (10.0-12.5) sec APTT 25.5 (22.0-30.0) sec CBC 05/14/23 05/15/23 Range/Units 10:54 09:22 WBC 6.5 7.2 (3.8-10.6) k/uL RBC 5.13 5.22 (4.30-5.90) m/uL Hgb 14.6 15.1 (13.0-17.5) gm/dL Hct 44.4 45.9 (39.0-53.0) % Plt Count 194 209 (150-450) k/uL Comprehensive Metabolic Panel 05/14/23 05/15/23 Range/Units 10:54 09:22 Sodium 139 141 (137-145) mmol/L Potassium 4.6 4.5 (3.5-5.1) mmol/L Chloride 102 104 (98-107) mmol/L Carbon Dioxide 27 27 (22-30) mmol/L BUN 16 20 (9-20) mg/dL Creatinine 0.99 1.05 (0.66-1.25) mg/dL Glucose 123 H 108 H (74-99) mg/dL Calcium 9.0 9.4 (8.4-10.2) mg/dL AST 33 (17-59) U/L ALT 32 (4-49) U/L Alkaline Phosphatase 55 (38-126) U/L Total Protein 7.1 (6.3-8.2) g/dL Albumin 4.0 (3.5-5.0) g/dL Current Medications Generic Name Dose Route Start Last Admin Trade Name Freq PRN Reason Stop Dose Admin Amiodarone HCl 400 mg 05/14/23 21:00 05/15/23 09:27 Amiodarone 200 Mg Tab PO 400 mg BID YONI Administration Apixaban 5 mg 05/14/23 21:00 05/15/23 09:26 Apixaban 5 Mg Tab PO 5 mg BID YONI Administration Protocol Aspirin 81 mg 05/15/23 09:00 05/15/23 09:25 Aspirin 81 Mg PO 81 mg DAILY [facility] Administration Atorvastatin Calcium 80 mg 05/14/23 21:00 05/14/23 21:33 Atorvastatin 80 Mg Tab PO 80 mg HS [facility] Administration Carvedilol 25 mg 05/15/23 09:15 05/15/23 09:27 Carvedilol 12.5 Mg Tab PO 25 mg AC-BID [facility] Administration Finasteride 5 mg 05/14/23 15:00 05/14/23 16:25 Finasteride 5 Mg Tab PO 5 mg DAILY@1500 [facility] Administration Furosemide 40 mg 05/15/23 09:00 05/15/23 09:26 Furosemide 40 Mg Tab PO 40 mg DAILY [facility] Administration Lisinopril 20 mg 05/15/23 11:15 Lisinopril 10 Mg Tab PO DAILY [facility] Naloxone HCl 0.2 mg 05/14/23 12:58 Naloxone 0.4 Mg/Ml 1 Ml Vial IV Q2M PRN Opioid Reversal Potassium Chloride 20 meq 05/15/23 09:00 05/15/23 09:26 Potassium Chloride Er 20 Meq Tab.Er PO 20 meq DAILY [facility] Administration Sildenafil Citrate 20 mg 05/14/23 15:00 05/14/23 16:16 Sildenafil 20 Mg Tab PO Not Given DAILY@1500 [facility] Spironolactone 12.5 mg 05/15/23 09:00 05/15/23 09:25 Spironolactone 25 Mg Tab PO 12.5 mg DAILY [facility] Administration Intake and Output 05/14/23 05/15/23 05/15/23 22:59 06:59 14:59 Other: Voiding Method Toilet # Voids 3 3 Weight 90.718 kg 05/15/23 09:22 05/15/23 09:22
[2023-05-15] MEDS: lisinopriL 20 MG TAB PO SCH ×2 (12:11→12:23)
[2023-05-15] MEDS: SILDENAFIL 20 MG TAB PO SCH (15:03)
[2023-05-15] MEDS: FINASTERIDE 5 MG TAB PO SCH (15:03)
[2023-05-15] MEDS ORDERED: DOXAZOSIN 2 MG TAB PO SCH (21:00)
[2023-05-15] MEDS: ATORVASTATIN 80 MG TAB PO SCH (21:42)
[2023-05-15] MEDS: PANTOPRAZOLE 40 MG/10 ML VIAL IVP SCH (22:01)
[2023-05-15] MEDS: MAG HYDROX/AL HYDROX/SIMETH 30 ML CUP PO SCH (22:01)
[2023-05-15 23:15] VITALS: RESP 16
[2023-05-16 05:10] VITALS: TEMP 98.1
[2023-05-16] MEDS: carvediloL 12.5 MG TAB PO SCH (06:29)
[2023-05-16 08:41] VITALS: BP 117/79; PULSE 82
[2023-05-16] MEDS ORDERED: lisinopriL 10 MG TAB PO SCH (09:00)
[2023-05-16] MEDS: APIXABAN 5 MG TAB PO SCH (09:39)
[2023-05-16] MEDS: POTASSIUM CHLORIDE ER 20 MEQ TAB.ER PO SCH (09:39)
[2023-05-16] MEDS: FUROSEMIDE 40 MG TAB PO SCH (09:39)
[2023-05-16] MEDS: ASPIRIN 81 MG PO SCH (09:39)
[2023-05-16] MEDS: MAG HYDROX/AL HYDROX/SIMETH 30 ML CUP PO SCH (09:40)
[2023-05-16] MEDS: lisinopriL 20 MG TAB PO SCH (09:40)
[2023-05-16] MEDS: SPIRONOLACTONE 25 MG TAB PO SCH (09:42)
[2023-05-16] MEDS: PANTOPRAZOLE 40 MG/10 ML VIAL IVP SCH (09:42)
[2023-05-16] MEDS: AMIODARONE 200 MG TAB PO SCH (10:02)
--- NOTE | 2023-05-16 10:21 | P.PN ---
Subjective Progress Note Date: 05/15/23 This is a 72-year-old male who was recently hospitalized and discharged last week with atrial fibrillation with RVR new-onset along with CHF being closely monitored. Patient went home reporting having some low blood pressure readings along with symptoms of dizziness and lightheadedness. Patient is maintained on telemetry monitoring with cardiology following making adjustments to medications recommending continue telemetry monitoring overnight with possible discharge planning in the next 24-48 hours. Patient denies any feelings of palpitations, chest pains, or shortness of breath. There is also discussion of possible need for ablation and/or fibrillator with Dr. Villalba. Patient to follow-up with him in the outpatient setting. Patient's currently afebrile and reports to feeling well and would like to go home. Review of systems: Constitutional: No reports of fatigue, fever, or chills Cardiovascular: No reports of chest pain or palpitations Respiratory: No reports of shortness of breath or cough GI: No reports of nausea, no reports of vomiting, no diarrhea : No reports of dysuria or retention Neurovascular: No reports of generalized weakness All medications have been reviewed PHYSICAL EXAMINATION: GENERAL: The patient is alert and oriented x4, Well developed, well nourished. HEENT: Pupils are round and equally reacting to light. EOMI. no scleral icterus. No conjunctival pallor. Normocephalic, atraumatic. No pharyngeal erythema. No thyromegaly. CARDIOVASCULAR: S1 and S2 muffled PULMONARY: diminished breath sounds bilaterally with no wheezing or rhonchi noted. ABDOMEN: soft. Nontender on exam. obese. non-distended, normoactive bowel sounds. No palpable organomegaly. MUSCULOSKELETAL: No joint swelling or deformity. EXTREMITIES: No cyanosis, clubbing, or pedal edema. NEUROLOGICAL: Gross neurological examination did not reveal any focal deficits. SKIN: No rashes. Assessment: Hypotension, possibly medication induced with weakness History of CHF with chronic systolic dysfunction, EF 35-40% New-onset atrial fibrillation paroxysmal, last week Status post cardiac catheterization showing mild nonobstructive coronary disease History of hypertension Hyperlipidemia on hypokalemia, improved History of prostate disorder History of nicotine dependence GI prophylaxis DVT prophylaxis Full code Plan: Recommend to continue with current medications and management with cardiology following. Patient came in with some dizziness possibly secondary to lisinopril and cardiology has reevaluated the patient making adjustments to medications Patient follow-up with Dr. Villalba outpatient with discussion of possible defibrillator and/or ablation. Cardiology recommends monitoring overnight on telemetry monitoring on changes of medications with possible discharge planning in the next 24 hours Encouraged increased activity as tolerated and frequent walking The impression and plan of care has been dictated by Gisela Robles, nurse practitioner as directed. Dr. Kashmir MD I have performed a history and examination and MDM of this patient, discussed the same with the dictator, and agree with the dictator's assessment and plan as written ,documented as a scribe. Based on total visit time, I have performed more than 50% of the visit. Any additional findings or plans will be noted. Objective - Vital Signs Vital signs: Vital Signs Temp 98 F 05/15/23 07:45 Pulse 86 05/15/23 12:20 Resp 16 05/15/23 07:45 BP 103/67 05/15/23 12:20 Pulse Ox 96 05/15/23 07:45 FiO2 Intake & Output 05/14/23 05/15/23 05/15/23 18:59 06:59 18:59 Intake Total 750 Balance 750 Weight 90.718 kg 90.718 kg Intake: Oral 750 Other: Voiding Method Toilet # Voids 3 2 # Bowel Movements 0 - Labs CBC & Chem 7: 05/15/23 09:22 05/15/23 09:22 Labs: Abnormal Lab Results - Last 24 Hours (Table) 05/14/23 05/14/23 05/14/23 Range/Units 10:54 10:54 21:00 ESR 37 H (0-20) mm/Hr Glucose (74-99) mg/dL C-Reactive Protein 1.2 H (<1.0) mg/dL Urine Protein Trace H (Negative) Urine Blood Trace H (Negative) Urine Mucus Occasional H (None) /hpf 05/15/23 Range/Units 09:22 ESR (0-20) mm/Hr Glucose 108 H (74-99) mg/dL C-Reactive Protein (<1.0) mg/dL Urine Protein (Negative) Urine Blood (Negative) Urine Mucus (None) /hpf
--- NOTE | 2023-05-16 11:04 | P.PN ---
Subjective HISTORY OF PRESENT ILLNESS: This is a 72-year-old male with a past medical history significant for congestive heart failure, persistent atrial fibrillation, nonischemic cardiomyopathy, and hypertension. Patient follows in the office with Dr. Pozo. We have been asked to see the patient in consultation for hypotension. Patient examined at the bedside. Patient was recently admitted to the hospital secondary to cardiomyopathy, congestive heart failure, and new onset atrial fibrillation. He underwent cardiac catheterization revealing mild nonobstructive coronary artery disease. He was discharged home in stable condition. He presented back to the hospital secondary to hypotension. His is at the bedside and states that she checked his blood pressure at home and was found to have readings with a systolic in the 80s. The patient states that he felt tired but otherwise he denied any symptoms. He denies chest pain or pressure. He denies shortness of breath. He denies dizziness or lightheadedness. * EKG reveals atrial fibrillation with controlled ventricular rate * Chest xray stable cardiomegaly. Mild subsegmental atelectasis bilateral lung bases * Laboratory data: Troponin negative 1. ProBNP 2009. * Current home cardiac medications include amiodarone 400 mg twice a day, Eliquis 5 mg twice a day, aspirin 81 mg daily, Lasix 40 mg daily, rosuvastatin 40 mg at night, Aldactone 4.5 mg daily, carvedilol 25 mg twice a day, and lisinopril 20 mg daily * Most recent echocardiogram obtained in May 2023 revealed ejection fraction 35-40%, [id number] TR, mild MR * Cardiac catheterization history: May 2023 revealing mild nonobstructive coronary artery disease 05/16/2023 Patient examined this morning to bedside. Patients is present. Patient currently denies chest pain or pressure. He denies shortness of breath. Blood pressure is stable. He remains in atrial fibrillation with controlled ventricular rate. PHYSICAL EXAM: VITAL SIGNS: Reviewed. GENERAL: Well-developed in no acute distress. HEENT: Head is normocephalic. Pupils are equal, round. Sclerae anicteric. Mucous membranes of the mouth are moist. Neck supple. No JVD or thyromegaly LUNGS: Respirations even and unlabored. Lungs essentially clear to auscultation bilaterally. HEART: Irregular rate and rhythm. S1 and S2 heard. ABDOMEN: Soft. Nondistended. Nontender. EXTREMITIES: Normal range of motion. No clubbing or cyanosis. Peripheral pulses intact. No lower extremity edema NEUROLOGIC: Awake and alert. Oriented x 3. ASSESSMENT: Hypotension, asymptomatic Persistent atrial fibrillation, newly diagnosed Nonischemic cardiomyopathy, 35-40% Congestive heart failure with reduced ejection fraction, currently euvolemic History of hypertension Hyperlipidemia History of BPH PLAN: Continue all current cardiac medications Decrease amiodarone to 400 mg daily at discharge Continue to hold Cardura at discharge Patient will require eventual atrial fibrillation ablation within the next 2-3 months Recommend AICD implantation in the future if patient's cardiomyopathy does not improve Patient is stable for discharge home today from a cardiac standpoint He is to follow up in the office with Dr. Pozo Nurse practitioner note has been reviewed by physician. Signing provider agrees with the documented findings, assessment, and plan of care. Objective - Vital Signs Vital signs: Vital Signs Temp 98.1 F 05/16/23 07:45 Pulse 82 05/16/23 07:45 Resp 16 05/16/23 07:45 BP 117/79 05/16/23 07:45 Pulse Ox 95 05/16/23 07:45 FiO2 Intake & Output 05/15/23 05/16/23 05/16/23 18:59 06:59 18:59 Intake Total 750 Balance 750 Intake: Oral 750 Other: Voiding Method Toilet # Voids 2 3 # Bowel Movements 0 - Labs CBC & Chem 7: 05/15/23 09:22 05/15/23 09:22
== END 2023-05-16 12:11 | disposition home or self-care (01) ==
LOC: EC 10:05 → 6NMEDSUR 12:58
PROVIDERS: ADMIT Hospitalist; ATTEND Hospitalist
DX: I95.9 Hypotension, unspecified (principal); I48.0 Paroxysmal atrial fibrillation; I11.0 Hypertensive heart disease with heart failure; I50.22 Chronic systolic (congestive) heart failure; E78.5 Hyperlipidemia, unspecified; I42.8 Other cardiomyopathies; I25.10 Atherosclerotic heart disease of native coronary artery without angina pectoris; N40.0 Benign prostatic hyperplasia without lower urinary tract symptoms; E87.6 Hypokalemia; Z87.891 Personal history of nicotine dependence; Z79.01 Long term (current) use of anticoagulants; Z79.82 Long term (current) use of aspirin; Z79.899 Other long term (current) drug therapy
CPT/HCPCS: 96374; 99285; 36415; 93005; 83880; 80053; 80048; 85652; 83735 ×2; 84484; 85025 ×2; 85610; 85730; 86140; 81001; 71046; G0378 ×3; S0138 ×2; C9113

== ENCOUNTER 2023-05-25 14:23 | Emergency (ER) | payer MEDICARE ==
[2023-05-25 14:44] VITALS: TEMP 97.9
[2023-05-25 14:51] LABS: Basophils # (A) 0.1 k/uL (0-0.2); Basophils % (A) 1 %; Eosinophils # (A) 0.2 k/uL (0-0.7); Eosinophils % (A) 2 %; HCT 45.5 % (39.0-53.0); HGB 15.1 gm/dL (13.0-17.5); Lymphocytes # (A) 1.7 k/uL (1.0-4.8); Lymphocytes % (A) 23 %; MCH 28.8 pg (25.0-35.0); MCHC 33.1 g/dL (31.0-37.0); Mean Platelet Volume 7.7; Monocytes # (A) 0.4 k/uL (0-1.0); Monocytes % (A) 5 %; Neutrophils # (A) 5.3 k/uL (1.3-7.7); Neutrophils % (A) 69 %; Platelet Count 216 k/uL (150-450); RBC 5.23 m/uL (4.30-5.90); RDW 13.6 % (11.5-15.5); WBC 7.8 k/uL (3.8-10.6)
[2023-05-25 15:03] LABS: INR 1.1 (<1.2)
[2023-05-25 15:10] LABS: ALT 26 U/L (4-49); AST 26 U/L (17-59); African American GFR (CKD) 65 (>60 ml/min/1.73 sqM); Alkaline Phosphatase 60 U/L (38-126); Anion Gap 8 mmol/L; Blood Urea Nitrogen 29 mg/dL (9-20); Calcium 8.8 mg/dL (8.4-10.2); Carbon Dioxide 26 mmol/L (22-30); Chloride 105 mmol/L (98-107); Glucose 105 mg/dL (74-99); Non-African American GFR(CKD) 56 (>60 ml/min/1.73 sqM); Potassium 4.4 mmol/L (3.5-5.1); Sodium 139 mmol/L (137-145); Total Bilirubin 0.9 mg/dL (0.2-1.3)
--- NOTE | 2023-05-25 15:47 | ED ---
Recheck HPI - General Chief Complaint: Recheck/Abnormal Lab/Rx Stated Complaint: low blood pressure Time Seen by Provider: 05/25/23 15:14 Source: patient, RN notes reviewed, old records reviewed Mode of arrival: ambulatory Limitations: no limitations - History of Present Illness Initial Comments: This is a 72-year-old male to the ER for evaluation of some subjective symptoms of dizziness and leg numbness. Patient is checking his blood pressure at home and finding it to be low. Patient does have atrial fibrillation and does have a recently long inpatient hospitalization for similar issues. Patient was placed on new blood pressure, heart rate control medication and he believes this is making his blood pressure low. He is scheduled for cardiac ablation no current shortness of breath or chest pain MD Complaint: abnormal lab (Blood pressure) -: days(s) Returns Today for: other (Symptoms have been persistent since hospital discharge) Symptoms Since Prior Visit: no new symptoms Context: planned re-check Associated Symptoms: none Treatments Prior to Arrival: other (0) - Related Data Home Medications Medication Instructions Recorded Confirmed Finasteride [Proscar] 5 mg PO DAILY@1500 05/08/23 06/02/23 Rosuvastatin Calcium [Crestor] 40 mg PO HS 05/08/23 06/02/23 carvediloL [Coreg] 25 mg PO BID 05/08/23 06/02/23 lisinopriL [Prinivil] 10 mg PO QAM 05/08/23 06/02/23 Furosemide [Lasix] 20 mg PO QAM 05/25/23 06/02/23 Amiodarone [Cordarone] 400 mg PO QAM 05/29/23 06/02/23 Aspirin 81 mg PO QAM 05/29/23 06/02/23 Pantoprazole [Protonix] 40 mg PO QAM 05/29/23 06/02/23 Potassium Chloride ER [K-Dur 20] 20 meq PO QAM 05/29/23 06/02/23 Sildenafil Citrate 1 tab PO DIRECTED PRN 05/29/23 06/02/23 Spironolactone [Aldactone] 12.5 mg PO QAM 05/29/23 06/02/23 Previous Rx's Medication Instructions Recorded Apixaban [Eliquis] 5 mg PO BID #60 tab 05/12/23 Allergies Allergy/AdvReac Type Severity Reaction Status Date / Time No Known Allergies Allergy Verified 06/02/23 06:56 Review of Systems ROS Statement: Those systems with pertinent positive or pertinent negative responses have been documented in the HPI. ROS Other: All systems not noted in ROS Statement are negative. Past Medical History Past Medical History: Atrial Fibrillation, Heart Failure, Hyperlipidemia, Hypertension, Prostate Disorder Additional Past Medical History / Comment(s): New onset Afib diagnosed 05/08/23. Patient admitted with hypotension this morning 05/14/23. History of Any Multi-Drug Resistant Organisms: None Reported Past Surgical History: Ear Surgery Additional Past Surgical History / Comment(s): hearing aids Past Anesthesia/Blood Transfusion Reactions: No Reported Reaction Past Psychological History: No Psychological Hx Reported Smoking Status: Former smoker Past Alcohol Use History: Rare Past Drug Use History: None Reported - Past Family History Sister(s) Family Medical History: Cancer Brother(s) Family Medical History: Myocardial Infarction ([place]) Father Family Medical History: Dementia General Exam Limitations: no limitations General appearance: alert, in no apparent distress Head exam: Present: atraumatic, normocephalic, normal inspection Eye exam: Present: normal appearance, PERRL, EOMI. Absent: scleral icterus, conjunctival injection, periorbital swelling ENT exam: Present: normal exam, mucous membranes moist Neck exam: Present: normal inspection. Absent: tenderness, meningismus, lymphadenopathy Respiratory exam: Present: normal lung sounds bilaterally. Absent: respiratory distress, wheezes, rales, rhonchi, stridor Cardiovascular Exam: Present: regular rate, normal rhythm, normal heart sounds. Absent: systolic murmur, diastolic murmur, rubs, gallop, clicks GI/Abdominal exam: Present: soft, normal bowel sounds. Absent: distended, tenderness, guarding, rebound, rigid Extremities exam: Present: normal inspection, full ROM, normal capillary refill. Absent: tenderness, pedal edema, joint swelling, calf tenderness Back exam: Present: normal inspection Neurological exam: Present: alert, oriented X3, CN II-XII intact Psychiatric exam: Present: normal affect, normal mood Skin exam: Present: warm, dry, intact, normal color. Absent: rash Course Vital Signs 05/25/23 05/25/23 14:26 16:00 Temperature 97.9 F Pulse Rate 65 75 Respiratory 16 22 Rate Blood Pressure 104/62 101/71 O2 Sat by Pulse 95 95 Oximetry - Reevaluation(s) Reevaluation #1: Medical records reviewed Reevaluation #2: Patient symptoms are improved Reevaluation #3: Patient informed of results and questions answered Reevaluation #4: Was pt. sent in by a medical professional or institution (GERI Eng, ASSOCIATE PROFESSOR OF MUSIC, urgent care, hospital, or [facility]...) When possible be specific @ -no Did you speak to anyone other than the patient for history (EMS, parent, family, police, friend...)? What history was obtained from this source @ -no Did you review nursing and triage notes (agree or disagree)? Why? @ -agree Are old charts reviewed (outside hosp., previous admission, EMS record, old EKG, old radiological studies, urgent care reports/EKG's, [facility] records)? Report findings @ -yes Differential Diagnosis (chest pain, altered mental status, abdominal pain women, abdominal pain men, vaginal bleeding, weakness, fever, dyspnea, syncope, headache, dizziness, GI bleed, back pain, seizure, CVA, palpatations, mental health, musculoskeletal)? @ -prior EKG interpreted by me (3pts min.). @ -yes X-rays interpreted by me (1pt min.). @ -yes negative for acute disease CT interpreted by me (1pt min.). @ -no U/S interpreted by me (1pt. min.). @ -no What testing was considered but not performed or refused? (CT, X-rays, U/S, labs)? Why? @ -none What meds were considered but not given or refused? Why? @ -none Did you discuss the management of the patient with other professionals (professionals i.e. G[employer], ASSOCIATE PROFESSOR OF MUSIC, lab, RT, psych nurse, social work specialist, automotive machinist, teacher, medical officer psychiatry, rn case manager hospice)? Give summary @ -no Was smoking cessation discussed for >3mins.? @ -no Was critical care preformed (if so, how long)? @ -no Were there social determinants of health that impacted care today? How? (Homelessness, low income, unemployed, alcoholism, drug addiction, transportation, low edu. Level, literacy, decrease access to med. care, intermediate, rehab)? @ -none Was there de-escalation of care discussed even if they declined (Discuss DNR or withdrawal of care, Hospice)? DNR status @ -no What co-morbidities impacted this encounter? (DM, HTN, Smoking, COPD, CAD, Cancer, CVA, ARF, Chemo, Hep., AIDS, mental health diagnosis, sleep apnea, morbid obesity)? @ -none Was patient admitted / discharged? Hospital course, mention meds given and route, prescriptions, significant lab abnormalities, going to OR and other pertinent info. @ - 72 male with a recent medical history of low blood pressure and atrial fibrillation scheduled for cardiac ablation. Patient has been having difficulty controlling blood pressure at home and blood pressure has been running low. This concerns the patient as to how he has been feeling with some lightheadedness and dizziness. He is checking his blood pressure at home frequently. Patient presents to the ER for evaluation of low blood pressure here in the ER is improved and patient can be discharged home as he feels well currently Discharged Undiagnosed new problem with uncertain prognosis? @ -no Drug Therapy requiring intensive monitoring for toxicity (Heparin, Nitro, Insulin, Cardizem)? @ -no Were any procedures done? @ -no Diagnosis/symptom? @ -Atrial fibrillation, arrhythmia, low blood pressure Acute, or Chronic, or Acute on Chronic? @ -Acute Uncomplicated (without systemic symptoms) or Complicated (systemic symptoms)? @ -Complicated Side effects of treatment? @ -no Exacerbation, Progression, or Severe Exacerbation? @ -exacerbation Poses a threat to life or bodily function? How? (Chest pain, [place], [place], pneumonia, PE, COPD, DKA, ARF, appy, cholecystitis, CVA, Diverticulitis, Homicidal, Mukherjee icidal, threat to staff... and all critical care pts) @ -yes arrhythmia and low blood pressure Reevaluation #5: Differential Palpitations Ventricular arrhythmias, atrial arrhythmias, myocardial infarction, anemia, thyrotoxicosis, electrolyte imbalance, hypokalemia, pulmonary embolism, pulmonary disease, drugs, alcohol, anxiety, stress.... This is not meant to be an all-inclusive list. Differential Dizziness: Benign paroxysmal positional Vertigo, Menieres disease, otitis media, acoustic neuroma, vertebrobasilar insufficiency, cerebellar stroke, encephalitis, hypov olemic, arrhythmia, coronary artery syndrome, anemia, this is not meant to be an all-inclusive list Medical Decision Making - Medical Decision Making 72 male with a recent medical history of low blood pressure and atrial fibrillation scheduled for cardiac ablation. Patient has been having difficulty controlling blood pressure at home and blood pressure has been running low. This concerns the patient as to how he has been feeling with some lightheadedness and dizziness. He is checking his blood pressure at home frequently. Patient presents to the ER for evaluation of low blood pressure here in the ER is improved and patient can be discharged home as he feels well currently - Lab Data Result diagrams: 05/25/23 14:44 05/25/23 14:44 Lab Results 05/25/23 05/25/23 05/25/23 Range/Units 14:44 14:44 14:44 WBC 7.8 (3.8-10.6) k/uL RBC 5.23 (4.30-5.90) m/uL Hgb 15.1 (13.0-17.5) gm/dL Hct 45.5 (39.0-53.0) % MCV 87.0 (80.0-100.0) fL MCH 28.8 (25.0-35.0) pg MCHC 33.1 (31.0-37.0) g/dL RDW 13.6 (11.5-15.5) % Plt Count 216 (150-450) k/uL MPV 7.7 Neutrophils % 69 % Lymphocytes % 23 % Monocytes % 5 % Eosinophils % 2 % Basophils % 1 % Neutrophils # 5.3 (1.3-7.7) k/uL Lymphocytes # 1.7 (1.0-4.8) k/uL Monocytes # 0.4 (0-1.0) k/uL Eosinophils # 0.2 (0-0.7) k/uL Basophils # 0.1 (0-0.2) k/uL PT 12.0 (10.0-12.5) sec INR 1.1 (<1.2) APTT 25.0 (22.0-30.0) sec Sodium 139 (137-145) mmol/L Potassium 4.4 (3.5-5.1) mmol/L Chloride 105 (98-107) mmol/L Carbon Dioxide 26 (22-30) mmol/L Anion Gap 8 mmol/L BUN 29 H (9-20) mg/dL Creatinine 1.26 H (0.66-1.25) mg/dL Est GFR (CKD-EPI)AfAm 65 (>60 ml/min/1.73 sqM) Est GFR (CKD-EPI)NonAf 56 (>60 ml/min/1.73 sqM) Glucose 105 H (74-99) mg/dL Calcium 8.8 (8.4-10.2) mg/dL Total Bilirubin 0.9 (0.2-1.3) mg/dL AST 26 (17-59) U/L ALT 26 (4-49) U/L Alkaline Phosphatase 60 (38-126) U/L Troponin I (0.000-0.034) ng/mL NT-Pro-B Natriuret Pep pg/mL Total Protein 7.0 (6.3-8.2) g/dL Albumin 4.0 (3.5-5.0) g/dL 05/25/23 05/25/23 Range/Units 14:44 14:44 WBC (3.8-10.6) k/uL RBC (4.30-5.90) m/uL Hgb (13.0-17.5) gm/dL Hct (39.0-53.0) % MCV (80.0-100.0) fL MCH (25.0-35.0) pg MCHC (31.0-37.0) g/dL RDW (11.5-15.5) % Plt Count (150-450) k/uL MPV Neutrophils % % Lymphocytes % % Monocytes % % Eosinophils % % Basophils % % Neutrophils # (1.3-7.7) k/uL Lymphocytes # (1.0-4.8) k/uL Monocytes # (0-1.0) k/uL Eosinophils # (0-0.7) k/uL Basophils # (0-0.2) k/uL PT (10.0-12.5) sec INR (<1.2) APTT (22.0-30.0) sec Sodium (137-145) mmol/L Potassium (3.5-5.1) mmol/L Chloride (98-107) mmol/L Carbon Dioxide (22-30) mmol/L Anion Gap mmol/L BUN (9-20) mg/dL Creatinine (0.66-1.25) mg/dL Est GFR (CKD-EPI)AfAm (>60 ml/min/1.73 sqM) Est GFR (CKD-EPI)NonAf (>60 ml/min/1.73 sqM) Glucose (74-99) mg/dL Calcium (8.4-10.2) mg/dL Total Bilirubin (0.2-1.3) mg/dL AST (17-59) U/L ALT (4-49) U/L Alkaline Phosphatase (38-126) U/L Troponin I <0.012 (0.000-0.034) ng/mL NT-Pro-B Natriuret Pep 922 pg/mL Total Protein (6.3-8.2) g/dL Albumin (3.5-5.0) g/dL - EKG Data -: EKG Interpreted by Me (EKG is a flutter 82 QRS 114 QTc 424) - Radiology Data Radiology results: report reviewed (Chest x-ray is negative for acute disease), image reviewed Disposition Clinical Impression: Atrial fibrillation, Hypotension Disposition: HOME SELF-CARE Condition: Good Instructions (If sedation given, give patient instructions): A-fib (Atrial Fibrillation) (ED) Is patient prescribed a controlled substance at d/c from ED?: No Referrals: Aura Huffman [Primary Care Provider] - 1-2 days Time of Disposition: 16:10
[2023-05-25] MEDS: SODIUM CHLORIDE 0.9% 500 ML 500 ML IV STA (15:48)
--- NOTE | 2023-05-25 16:06 | XR ---
EXAMINATION TYPE: XR chest 1V portable DATE OF EXAM: 05/25/2023 COMPARISON: 05/14/2023 INDICATION: CHF TECHNIQUE: Single frontal view of the chest is obtained. FINDINGS: The heart size is enlarged. The pulmonary vasculature is normal. The lungs are clear. IMPRESSION: 1. Cardiomegaly
[2023-05-25 17:58] VITALS: BP 101/71; PULSE 75; RESP 22
== END 2023-05-25 16:51 | disposition home or self-care (01) ==
LOC: EC 14:23
DX: I11.0 Hypertensive heart disease with heart failure (principal); I48.91 Unspecified atrial fibrillation; I50.9 Heart failure, unspecified; E11.10 Type 2 diabetes mellitus with ketoacidosis without coma; E78.5 Hyperlipidemia, unspecified; F41.9 Anxiety disorder, unspecified; I21.9 Acute myocardial infarction, unspecified; I25.10 Atherosclerotic heart disease of native coronary artery without angina pectoris; J44.9 Chronic obstructive pulmonary disease, unspecified; Z87.891 Personal history of nicotine dependence; Z79.01 Long term (current) use of anticoagulants; Z79.82 Long term (current) use of aspirin; Z79.899 Other long term (current) drug therapy
CPT/HCPCS: 36415; 71045; 80053; 83880; 84484; 85025; 85610; 85730; 93005; 96360; 99284

== ENCOUNTER 2023-06-02 06:01 | Day surgery (SDC) | payer MEDICARE ==
[2023-06-02] MEDS: SODIUM CHLORIDE 0.9% 1,000 ML IV SCH (07:28)
[2023-06-02] MEDS ORDERED: PROPOFOL 10 MG/ML 20 ML VIAL IV ONE (07:40)
[2023-06-02] MEDS ORDERED: LIDOCAINE 1% INJ 10MG/ML (20 ML MDV) ONE (07:40)
[2023-06-02 08:11] VITALS: TEMP 97.3
[2023-06-02 09:13] VITALS: PULSE 57
[2023-06-02 09:42] VITALS: BP 110/70; RESP 16
--- NOTE | 2023-06-02 18:24 | P.PCN ---
Date of Procedure: 06/02/23 Operative Findings: Cardioversion Report Performing physician Silvestre Pozo M.D. Procedure performed Successful cardioversion of atrial fibrillation to normal sinus mechanism using 200 J at first attempt Indication Symptomatic atrial fibrillation Complication None Level of sedation The procedure was performed under deep sedation using propofol with SENIOR MARKETING COORDINATOR in the room Procedure description After obtaining an informed consent the patient was brought to the recovery room. Sedation was introduced using propofol with SENIOR MARKETING COORDINATOR in the room. Transesophageal echocardiogram was performed and no evidence of intracardiac thrombus identified Subsequently the patient cardioverted from atrial fibrillation to normal sinus mechanism using 200 J and first attempt Conclusion Successful cardioversion of atrial fibrillation to normal sinus mechanism using 200 J Postprocedure management Continue the current medical regimen Continue oral anticoagulation Follow-up with the patient
--- NOTE | 2023-06-02 18:35 | P.PCN ---
Date of Procedure: 06/02/23 Operative Findings: TRANSESOPHAGEAL ECHOCARDIOGRAM INVENTORY CHECKER: RENU DUNCAN MD, RPVI INDICATION: Rule out intracardiac thrombus before cardioversion SEDATION: Conscious sedation COMPLICATION: None LEVEL OF SEDATION The patient was given propofol PROCEDURE DESCRIPTION: After obtaining an informed consent, the patient was brought to the recovery room. Pulse oximetry and heart monitors were attached to the patient. The patient throat was sprayed using lidocaine. The patient was turned into left lateral position. After that a bite guard was placed. After an appropriate conscious sedation was initiated, the transesophageal echocardiogram was advanced through a bite guard into the mid esophagus. A 2-D echocardiogram images, color Doppler images, continuous wave images, pulse-wave images, of various cardiac structure were performed. After that the transesophageal echocardiogram probe was advanced into the stomach and fixed to obtain transgastric view was. The probe was brought into the mid esophagus. Inter-atrial septum was interrogated using 2D images, color Doppler images, and then contrast study. After that transesophageal echocardiogram was withdrawn out and upon withdrawing the descending thoracic aorta all the way up to the arch was evaluated. CONCLUSION: 1. Intact left atrial appendage 2. Impaired LV function was EF around 40% 3. [id number] mitral regurgitation 4. Mild to moderate tricuspid regurgitation 5. No evidence of pericardial effusion
== END 2023-06-02 09:54 | disposition home or self-care (01) ==
LOC: OR 06:01
PROVIDERS: ATTEND Internal Medicine Interventional Cardiology
DX: I08.1 Rheumatic disorders of both mitral and tricuspid valves (principal); I48.91 Unspecified atrial fibrillation; I10 Essential (primary) hypertension; E78.5 Hyperlipidemia, unspecified; Z79.82 Long term (current) use of aspirin; Z79.01 Long term (current) use of anticoagulants; Z79.899 Other long term (current) drug therapy
CPT/HCPCS: 93312; 93320; 93325; 92960; J2001; J2704